=== PATIENT | male | born 1935 | race African-American/Black ===

== ENCOUNTER 2017-03-19 16:00 | Inpatient (IN) ==
[2017-03-19] MEDS ORDERED: Acetaminophen 325 MG TABLET PO ONE (16:06)
--- NOTE | 2017-03-19 16:09 | Emergency Department Note ---
Disposition Clinical Impression: Generalized weakness, Lower extremity edema RLL pneumonia Qualifiers: Pneumonia type: due to unspecified organism Qualified Code(s): J18.1 - Lobar pneumonia, unspecified organism Disposition: Admitted As Inpatient Condition: Fair Referrals: Bethany Morocho MD [Primary Care Provider] - Forms: ED Satisfaction Letter Time of Disposition: 18:49 Weakness HPI - General Chief complaint: ED Weakness Stated complaint: weakness Time Seen by Provider: 03/19/17 16:03 Source: EMS Mode of arrival: EMS Limitations: no limitations Nursing Notes Reviewed: Yes Vital Signs Reviewed: Yes - History of Present Illness HPI Narrative: Patient is an 81-year-old male who presents to [facility] ED with a chief complaint of generalized weakness. States his symptoms have been worsening over the last 2 days. Patient admits to feeling chills, no known fevers. No nausea, vomiting, headache, chest pain, abdominal pain, problems with urination or bowel movements. Admits to cough over the last 2 weeks. However daughter states the weakness did not develop until the last 2 days. Patient has not been treated on any antibiotics prior to this. Patient also noted worsening leg swelling over the last couple of days. Patient does not have any cardiac history though there was PCP concern for possible congestive heart failure. Past medical history significant for hypertension for which she was previously on lisinopril. His primary care physician just took him off it today and decided to start him on Lasix. He has not started taking this yet. Pt Subjective Complaint: generalized weakness/fatigue Onset (ago): day(s) Duration: gradually worsening Location: generalized Pain Severity: none Improves with: none Worsens with: none Associated symptoms: Reports: fever/chills - Related Data Home Medications Medication Instructions Recorded Confirmed Aspirin [Lo-Dose Aspirin EC] 81 mg PO BID 03/19/17 03/19/17 Atorvastatin [Lipitor] 40 mg PO HS 03/19/17 03/19/17 Ferrous Sulfate [Iron] 325 mg PO DAILY 03/19/17 03/19/17 Furosemide [Lasix] 20 mg PO DAILY 03/19/17 03/19/17 Multivitamin [Multi-Day Vitamins] 1 tab PO DAILY 03/19/17 03/19/17 [place]-3/Dha/Epa/Fish Oil [[place] 3 1 cap PO DAILY 03/19/17 03/19/17 500 Softgel] Omeprazole [PriLOSEC] 40 mg PO DAILY 03/19/17 03/19/17 metFORMIN [Glucophage] 500 mg PO BID 03/19/17 03/19/17 Allergies Allergy/AdvReac Type Severity Reaction Status Date / Time No Known Allergies Allergy Verified 03/19/17 16:21 All systems ED: reviewed and negative except as stated. Past Medical History - Past Medical History Attestation: Yes The following information was validated with the patient. Source: patient Medical history: Reports: hypertension - Social History Smoking Status: Former smoker (50 years ago) Physical Exam - General Limitations: no limitations General appearance: alert, in no apparent distress - Head Head exam: atraumatic, normocephalic, normal inspection - Eye Eye exam: Present: normal appearance, EOMI - ENT ENT exam: normal exam, normal oropharynx, mucous membranes moist - Neck Neck exam: Present: normal inspection, full ROM, trachea midline - Chest Chest inspection: Present: normal inspection, symmetric chest wall rise - Respiratory Respiratory exam: Present: other (Bilateral coarse breath sounds at the bases) - Cardiovascular Cardiovascular exam: Present: normal rhythm, tachycardia - Abdominal Exam Abdominal exam: Present: soft, Non-Tender. Absent: tenderness, distention, guarding, rebound, rigidity - Extremities Exam Extremities exam: Present: pedal edema (b/l 2+ pitting) - Back Exam Back exam: Present: normal inspection, full ROM. Absent: tenderness - Neurological Exam Neurological exam: Present: alert - Psychiatric Psychiatric exam: Present: normal affect, normal mood - Skin Skin exam: Present: warm, dry, intact, normal color Course Course Narrative: Patient seen and examined. Generalized weakness with 2 week history of cough, fever today, worsening bilateral lower extremity swelling. No prior cardiac history. We will get lab work, chest x-ray, EKG, urinalysis, blood cultures, lactic acid. - Reevaluation(s) Reevaluation #1: Patient's lab work shows a white count of 16. Chest x-ray shows right lower lobe pneumonia. Patient also had mild hypokalemia with a potassium of 3.1. Replaced with 40 mEq oral KCl. We will go ahead and start a dose of IV Levaquin here. We will admit for community-acquired pneumonia, generalized weakness, and new onset lower extremity edema. I spoke with hospitalist Celia Ventura who has accepted patient for admission. Time: 18:47 Vital Signs Temperature 100.7 F H 03/19/17 16:04 Pulse Rate 102 03/19/17 16:04 Respiratory Rate 16 03/19/17 16:04 Blood Pressure 160/60 03/19/17 16:04 O2 Sat by Pulse Oximetry 95 03/19/17 16:04 Temperature 100.7 F H 03/19/17 16:04 Pulse Rate 93 03/19/17 17:29 Respiratory Rate 16 03/19/17 17:29 Blood Pressure 148/75 03/19/17 17:29 O2 Sat by Pulse Oximetry 97 03/19/17 17:29 Oxygen Delivery Oxygen Delivery Room Air Weakness - MDM Narrative Medical decision making narrative: I examined this patient and my medical decision-making was reviewed with the DAM TENDER/PA/Advanced Practice Nurse/Resident Physician. I agree with the documented findings, disposition and treatment plan as described except to the extent set forth below. Patient presents today with EMS due to possible low blood pressure and feeling weak. He went to the doctor's office today complaining of some cough. They took him off his BRYNN inhibitor. He had some edema in his ankles. Also fever. He does blood pressure was low but is actually high when the medics picked him up and normal when he is at the scene. Also here. He looks well. He looks nontoxic. Recommend a workup on him. He has had a history of renal insufficiency in the past. And we will see how that is doing also with the fever will search for an ear infection. Unlikely and the large amount of fluids due to history of CHF. And then we will reassess. 1656 hrs. Patient does have a leukocytosis. His renal insufficiency is chronic and is actually better than it usually is. We are just waiting on his chest x-ray and then will reassess. See if we can find a source of his fever and leukocytosis. 1755 hrs.: Patient's chest x-ray shows an increased opacity in the right lung I think is probably a pneumonia with his fever. Waiting on official read from radiology. Chest X-Ray 03/19/17 16:03 IMPRESSION: Patchy opacity in the right lower lung zone, concerning for pneumonia. Follow-up radiographs recommended in 6-8 weeks to document resolution. D/ / Alo Dowell MD / Alo Dowell MD Interpreting Provider: Alo Dowell MD - Medical Records Medical records reviewed: Yes I reviewed the patient's medical records. - Lab Data Lab results reviewed: Yes I reviewed the patient's lab results. Result diagrams: 03/19/17 16:20 03/19/17 16:20 Lab Results 03/19/17 03/19/17 03/19/17 Range/Units 16:20 16:20 16:20 WBC 16.0 H (4.3-11.1) K/mcL RBC 3.70 L (4.19-5.50) M/mcL Hgb 10.1 L (12.9-16.9) g/dL Hct 29.8 L (37.5-50.1) % MCV 80.5 L (83.0-100.0) fL MCH 27.3 L (28.0-33.3) pg MCHC 33.9 (31.6-35.5) g/dL RDW 13.3 (11.5-14.5) % Plt Count 379 (140-400) K/mcL MPV 9.9 (9.4-12.4) fL Immature Gran % 0.6 (0-4) % Seg Neutrophils % 83.6 % Lymphocytes % 9.5 % Monocytes % 6.1 % Eosinophils % 0.1 % Basophils % 0.1 % Neutrophils # 13.3 H (1.6-8.9) K/mcL Lymphocytes # 1.5 (0.6-4.6) K/mcL Monocytes # 1.0 (0.0-1.3) K/mcL Eosinophils # 0.0 (0.0-0.6) K/mcL Basophils # 0.0 (0.0-0.2) K/mcL Immature Plt Fraction 3.2 (1.1-6.1) % Sodium 135 L (136-145) mEq/L Potassium 3.1 L (3.5-4.5) mEq/L Chloride 99 (98-109) mEq/L Carbon Dioxide 27 (19-29) mEq/L BUN 18 (8-26) mg/dL Creatinine 1.27 H (0.72-1.25) mg/dL Est GFR ( Amer) > 60 (> 60) Est GFR (Non-Af Amer) 54 L (> 60) BUN/Creatinine Ratio 14 (6-26) Glucose 159 H (70-99) mg/dL Calculated Osmolality 285 (280-300) Lactic Acid (0.5-2.2) mmol/L Calcium 9.0 (8.6-10.8) mg/dL Troponin I 0.01 (0-0.03) ng/mL B-Natriuretic Peptide (0-100) pg/mL Urine Color (Yellow) Urine Clarity (Clear) Urine pH (5.0-8.0) pH Units Ur Specific [place] (1.010-1.025) Urine Protein (Neg-Trace) mg/dL Urine Glucose (UA) (Normal) mg/dL Urine Ketones (Negative) mg/dL Urine Blood (Negative) Urine Nitrite (Negative) Urine Bilirubin (Negative) Urine Urobilinogen (Normal) mg/dL Ur Leukocyte Esterase (Negative) Urine Microscopic RBC (0-3) per hpf Urine Microscopic WBC (0-3) per hpf Ur Squamous Epith Cells (None-Few) per lpf Urine Bacteria (None-Few) per hpf Hyaline Casts (None-Few) per lpf Ur Culture Indicated? (NO) 03/19/17 03/19/17 03/19/17 Range/Units 16:20 16:20 17:17 WBC (4.3-11.1) K/mcL RBC (4.19-5.50) M/mcL Hgb (12.9-16.9) g/dL Hct (37.5-50.1) % MCV (83.0-100.0) fL MCH (28.0-33.3) pg MCHC (31.6-35.5) g/dL RDW (11.5-14.5) % Plt Count (140-400) K/mcL MPV (9.4-12.4) fL Immature Gran % (0-4) % Seg Neutrophils % % Lymphocytes % % Monocytes % % Eosinophils % % Basophils % % Neutrophils # (1.6-8.9) K/mcL Lymphocytes # (0.6-4.6) K/mcL Monocytes # (0.0-1.3) K/mcL Eosinophils # (0.0-0.6) K/mcL Basophils # (0.0-0.2) K/mcL Immature Plt Fraction (1.1-6.1) % Sodium (136-145) mEq/L Potassium (3.5-4.5) mEq/L Chloride (98-109) mEq/L Carbon Dioxide (19-29) mEq/L BUN (8-26) mg/dL Creatinine (0.72-1.25) mg/dL Est GFR ( Amer) (> 60) Est GFR (Non-Af Amer) (> 60) BUN/Creatinine Ratio (6-26) Glucose (70-99) mg/dL Calculated Osmolality (280-300) Lactic Acid 2.2 (0.5-2.2) mmol/L Calcium (8.6-10.8) mg/dL Troponin I (0-0.03) ng/mL B-Natriuretic Peptide 62 (0-100) pg/mL Urine Color Dark Yellow (Yellow) Urine Clarity Cloudy A (Clear) Urine pH 5.5 (5.0-8.0) pH Units Ur Specific [place] 1.023 (1.010-1.025) Urine Protein 100 H (Neg-Trace) mg/dL Urine Glucose (UA) Normal (Normal) mg/dL Urine Ketones Negative (Negative) mg/dL Urine Blood Negative (Negative) Urine Nitrite Negative (Negative) Urine Bilirubin Small H (Negative) Urine Urobilinogen 4.0 H (Normal) mg/dL Ur Leukocyte Esterase Negative (Negative) Urine Microscopic RBC 5-15 H (0-3) per hpf Urine Microscopic WBC 3-5 H (0-3) per hpf Ur Squamous Epith Cells Many H (None-Few) per lpf Urine Bacteria None Seen (None-Few) per hpf Hyaline Casts None Seen (None-Few) per lpf Ur Culture Indicated? NO (NO) - Radiology Data Radiology results reviewed: Yes I reviewed the patient's radiology results. Chest X-Ray 03/19/17 16:03 IMPRESSION: Patchy opacity in the right lower lung zone, concerning for pneumonia. Follow-up radiographs recommended in 6-8 weeks to document resolution. D/ / Alo Dowell MD / Alo Dowell MD Interpreting Provider: Alo Dowell MD - EKG Data EKG attestation: Yes I reviewed and interpreted this EKG. EKG results narrative: EKG done at 1608 shows sinus tachycardia with a rate of [address] elevation. Diffuse ST depression in leads 2, 3, aVF, V4 through V6. Normal axis. No prior EKG for comparison.
[2017-03-19 16:32] LABS: Basophils % 0.1 %; Eosinophils % 0.1 %; Hematocrit 29.8 % (37.5-50.1); Hemoglobin 10.1 g/dL (12.9-16.9); Immature Granulocytes % 0.6 % (0-4); Immature Platelets 3.2 % (1.1-6.1); Lymphocytes # 1.5 K/mcL (0.6-4.6); Lymphocytes % 9.5 %; Mean Corpuscular HGB Conc 33.9 g/dL (31.6-35.5); Mean Corpuscular Hemoglobin 27.3 pg (28.0-33.3); Mean Corpuscular Volume 80.5 fL (83.0-100.0); Mean Platelet Volume 9.9 fL (9.4-12.4); Monocytes % 6.1 %; Neutrophils # 13.3 K/mcL (1.6-8.9); Platelet Count 379 K/mcL (140-400); Red Cell Distribution Width 13.3 % (11.5-14.5); Segmented Neutrophils % 83.6 %
[2017-03-19 16:53] LABS: BUN/Creatinine Ratio 14 (6-26); Blood Urea Nitrogen 18 mg/dL (8-26); Carbon Dioxide 27 mEq/L (19-29); Chloride 99 mEq/L (98-109); Glucose 159 mg/dL (70-99); Osmolality,Calculated 285 (280-300); Potassium 3.1 mEq/L (3.5-4.5); Sodium 135 mEq/L (136-145); eGFR For African Americans > 60 (> 60); eGFR For Non-African Americans 54 (> 60)
[2017-03-19 17:26] LABS: Bilirubin,Urine Small (Negative); Blood,Urine Negative (Negative); Clarity,Urine Cloudy (Clear); Color,Urine Dark Yellow (Yellow); Glucose,Urine (UA) Normal (Normal); Ketones,Urine Negative (Negative); Leukocyte Esterase,Urine Negative (Negative); Nitrite,Urine Negative (Negative); PH,Urine 5.5 pH Units (5.0-8.0); Protein,Urine 100 mg/dL (Neg-Trace); Specific Gravity,Urine 1.023 (1.010-1.025)
[2017-03-19 17:29] LABS: Bacteria,Urine None Seen per hpf (None-Few); Hyaline Casts,Urine None Seen per lpf (None-Few); Squamous Epithelial Cell,Urine Many per lpf (None-Few)
[2017-03-19] MEDS ORDERED: Levofloxacin 750 MG/150 ML 750 MG/150 ML BAG IVPB ONE (18:27)
[2017-03-19] MEDS ORDERED: Naloxone 0.4 MG/ML INJ IVP PRN (19:38)
[2017-03-19] MEDS ORDERED: Ondansetron 4 MG/2 ML VIAL IVP PRN (19:40)
[2017-03-19] MEDS ORDERED: Acetaminophen 325 MG TABLET PO PRN (19:40)
[2017-03-19] MEDS ORDERED: *HR* HYDROcodone/Acet 5/325 mg TABLET PO PRN (19:40)
[2017-03-19] MEDS ORDERED: D5% in Water 1,000 ML IVC PRN (19:42)
[2017-03-19] MEDS ORDERED: *HR* Dextrose 50 % in Water (Syg) 50 ML SYRINGE IVP PRN (19:42)
[2017-03-19] MEDS ORDERED: Dextrose Gel 15 GM PO PRN ×2 (19:42)
[2017-03-19] MEDS ORDERED: Insulin LISPRO 300 UNITS/3 ML VIAL SQ SCH (21:00)
--- NOTE | 2017-03-19 21:04 | Internal Med History&Physical ---
Date of Encounter: 03/19/17 Time of Encounter: 21:00 Assessment and Plan (1) Sepsis Current visit: Yes Status: Acute 1 patient presented with history of fevers chills or productive cough with yellow sputum chest x-ray revealed RLLo patency suggestive of pneumonia, he was tachycardic with a white count 16. Blood cultures have been drawn and we will obtain sputum cultures, blood pressure stable, 2 IV fluids 3 monitor intake and output 4 Levaquin/Unasyn 5 cardiac monitoring Qualifiers: Sepsis type: sepsis due to unspecified organism Qualified Code(s): A41.9 - Sepsis, unspecified organism (2) RLL pneumonia Current visit: Yes Status: Acute 1 CAP vs possible aspiration- patient has been experiencing productive cough with thick yellow sputum fevers he also has been experiencing globulus sensation and dysphagia, concern for possible aspiration. Blood cultures have been obtained we will obtain sputum cultures 2 we will continue with Levaquin and add Unasyn 3. Bronchodilators as needed 4 oxygen as needed Qualifiers: Pneumonia type: due to unspecified organism Qualified Code(s): J18.1 - Lobar pneumonia, unspecified organism (3) Globus sensation Current visit: Yes Status: Acute 1 patient has been experiencing globules sensation when eating. He has also experienced some weight loss with anemia- concern for possible neoplasm we will make patient nothing by mouth after midnight-only give for liquids for now 2 consult GI EGD (4) Diabetes mellitus Current visit: Yes Status: Chronic Accu-Cheks q 6hrs while NPO, we will hold metformin for now Qualifiers: Diabetes mellitus type: type 2 Diabetes mellitus complication detail: with chronic kidney disease Diabetes mellitus snf insulin use: without termite control technician use Chronic kidney disease stage: stage 3 (moderate) Qualified Code(s) : E11.22 - Type 2 diabetes mellitus with diabetic chronic kidney disease; N18.3 - Chronic kidney disease, stage 3 (moderate) (5) CKD (chronic kidney disease) stage 3, GFR 30-59 ml/min Current visit: Yes Status: Acute 1 creatinine is 1.27 he was 1.5 last month. We will continue to monitor creatinine 2 avoid nephrotoxins 3 renally dose antibiotics 4 avoid NSAIDs 5 monitor intake and output daily weights (6) DVT prophylaxis Current visit: Yes Status: Acute 1TED hose (7) Anemia Current visit: Yes Status: Acute Hgb is 10.8, normocytic, will obtain iron studies folate and B12 Qualifiers: Anemia type: unspecified type Qualified Code(s): D64.9 - Anemia, unspecified Internal Medicine - H&P: HPI Chief complaint: cough Admitted From: Emergency Dept Plans for Post Hospital Care: Home History of present illness: Mr. Tyler is a 81 year old male past medical history of diabetes hypertension. Cranial patient has been experiencing weakness and cough subjective fevers and chills for approximately the past 2 weeks. He states the cough is worse at night. He also states he has been experiencing some difficulty swallowing he feels as if something is stuck in his throat when he is eating. His daughter who is at bedside states that she has noted that he does cough and clears his throat when he eats. He has had some weight loss. He has been producing thick yellow sputum he denies any nausea vomiting shortness of breath abdominal pain chest pain sick contacts or recent travel. He has lower extremity edema bilat right leg more than left . He went to his primary care physician today with these complaints. He had a fever upon presentation at primary care office he was advised to go to the ER for evaluation. In the ER lab work was obtained which did show leukocytosis 16,000 as well as hypokalemia at 3.1 his creatinine is 1.27 lactate was 2.2 chest x-ray was obtained which did show an opacity in his right lower lobe. EKG shows sinus tachycardia with some nonspecfic ST depression He did meet sepsis criteria blood cultures were obtained he was started on Levaquin and has been admitted for further workup and evaluation. Presently the patient does not appear to be in any respiratory distress he denies any chest pain heart sounds are regular S1-S2 with no rubs clicks gallops murmurs noted. Lungs sounds with crackles in right lower base otherwise clear. Abdomen soft nontender he does have +1 edema to right lower extremity. Presently he is hemodynamically stable. I reviewed the case with Dr Olvera who agrees with plan Past Med Surg Social Fam HX - Past Medical History Medical history: hypertension - Social History Smoking Status: Former smoker (50 years ago) Alcohol use: rarely Drug use: none - Additional Family History Additional family history: unknown Internal Medicine - H&P: Meds Aspirin [Lo-Dose Aspirin EC] 81 mg PO BID 03/19/17 [History] Atorvastatin [Lipitor] 40 mg PO HS 03/19/17 [History] Ferrous Sulfate [Iron] 325 mg PO DAILY 03/19/17 [History] Furosemide [Lasix] 20 mg PO DAILY 03/19/17 [History] Multivitamin [Multi-Day Vitamins] 1 tab PO DAILY 03/19/17 [History] [place]-3/Dha/Epa/Fish Oil [[place] 3 500 Softgel] 1 cap PO DAILY 03/19/17 [History] Omeprazole [PriLOSEC] 40 mg PO DAILY 03/19/17 [History] metFORMIN [Glucophage] 500 mg PO BID 03/19/17 [History] Allergies No Known Allergies Allergy (Verified 03/19/17 16:21) All Systems PM: A 10-system review of systems was performed and is negative for pertinent findings except as documented above in the HPI. - Constitutional Constitutional: fatigue, weakness, weight loss - Cardiovascular Cardiovascular ROS IM: edema, no chest pain, no diaphoresis, no dyspnea, no lightheadedness, no palpitations, no syncope - Respiratory Respiratory: cough, excessive phlegm production, change in phlegm color - Gastrointestinal Gastrointestinal: dysphagia, no abdominal pain, no diarrhea, no hematemesis, no hematochezia, no melena, no nausea, no vomiting - Musculoskeletal Musculoskeletal ROS IM: no numbness, no tingling - Integumentary Integumentary IM: no rash, no unusual bruising - Neurological Neurological ROS: no confusion, no convulsions, no focal weakness, no numbness, no tingling, no tremor(s) - Hematologic/Lymphatic Hematologic/Lymphatic: no easy bruising - Constitutional Vitals: Temp Pulse Resp BP Pulse Ox 97.6 F 83 15 143/71 95 03/19/17 20:13 03/19/17 20:13 03/19/17 20:13 03/19/17 20:13 03/19/17 20:13 General appearance: Present: A&O X 3, pleasant, underweight - Head Head exam: Present: atraumatic, normocephalic - Eye Eye exam: Present: PERRL, conjuntiva pink, sclera anicteric Pupils: Present: PERRL - Neck Neck exam general surgery: Present: supple, trachea midline. Absent: lymphadenopathy - Respiratory Respiratory exam: Present: CTAB, rales. Absent: accessory muscle use, rhonchi, wheezes - Cardiovascular Cardiovascular exam: Present: RRR, +S1, +S2, tachycardia. Absent: diastolic murmur, gallop, rubs, systolic murmur - GI/Abdominal GI/Abdominal exam: Present: normal bowel sounds, soft, no peritoneal signs. Absent: distended, tenderness - Extremities Exam Extremities exam: Present: pedal edema, warm, radial pulses palpable and symetrical. Absent: calf tenderness, cyanotic - Neurological Exam Neurological exam: Present: CN II-XII intact, oriented X3, no focal deficits. Absent: pronater drift, facial droop, speech deficit - Skin Skin exam: Present: dry, intact Internal Med - H&P Results - Labs CBC & Chem 7: 03/19/17 16:20 03/19/17 16:20 - EKG Data Rate: tachycardia - EKG Data Prior EKG available for review: yes - Diagnostic Studies Other Images Additional comments: Chest X-Ray 03/19/17 16:03 IMPRESSION: Patchy opacity in the right lower lung zone, concerning for pneumonia. Follow-up radiographs recommended in 6-8 weeks to document resolution. D/ / Alo Dowell MD / Alo Dowell MD Interpreting Provider: Alo Dowell MD
[2017-03-19] MEDS ORDERED: Albuterol 2.5 MG/3 ML NEBULIZER IH PRN (21:33)
[2017-03-19] MEDS: Ampicillin/Sulbactam 3,000 MG in 0.9 % Sodium Chloride Mini Bag 100 ML IVPB SCH (22:08)
[2017-03-19] MEDS: 0.9 % Sodium Chloride 1,000 ML IVC SCH (22:09)
[2017-03-19] MEDS: Lactobacillus 1 EACH CAP.SPRINK PO SCH (22:09)
[2017-03-19] MEDS: Aspirin Enteric Coated 81 MG Tablet PO SCH (22:09)
[2017-03-20] MEDS ORDERED: Ampicillin/Sulbactam 3,000 MG in 0.9 % Sodium Chloride Mini Bag 100 ML IVPB SCH
[2017-03-20] MEDS ORDERED: Ampicillin/Sulbactam 1,500 MG in 0.9 % Sodium Chloride Mini Bag 100 ML IVPB SCH
[2017-03-20] MEDS: Insulin LISPRO 300 UNITS/3 ML VIAL SQ SCH ×4 (00:57→17:15)
[2017-03-20] MEDS: Ampicillin/Sulbactam 3,000 MG in 0.9 % Sodium Chloride Mini Bag 100 ML IVPB SCH ×4 (03:45→20:57)
[2017-03-20 05:53] LABS: Basophils % 0.2 %; Eosinophils % 0.1 %; Hematocrit 30.9 % (37.5-50.1); Hemoglobin 10.1 g/dL (12.9-16.9); Immature Granulocytes % 0.8 % (0-4); Lymphocytes # 1.3 K/mcL (0.6-4.6); Mean Corpuscular HGB Conc 32.7 g/dL (31.6-35.5); Mean Corpuscular Hemoglobin 26.4 pg (28.0-33.3); Mean Corpuscular Volume 80.7 fL (83.0-100.0); Mean Platelet Volume 9.9 fL (9.4-12.4); Monocytes % 5.4 %; Neutrophils # 16.7 K/mcL (1.6-8.9); Platelet Count 438 K/mcL (140-400); Red Blood Count 3.83 M/mcL (4.19-5.50); Red Cell Distribution Width 13.2 % (11.5-14.5); Segmented Neutrophils % 86.5 %
[2017-03-20 06:04] LABS: Alanine Aminotransferase 13 Units/L (0-55); Albumin 2.2 g/dL (3.5-5.0); Albumin/Globulin Ratio 0.5 (1.1-2.2); Alkaline Phosphatase 86 Units/L (38-126); Aspartate Amino Transferase 21 Units/L (5-34); BUN/Creatinine Ratio 13 (6-26); Bilirubin,Direct 0.6 mg/dL (0.0-0.5); Bilirubin,Indirect 0.5 mg/dL (0.0-1.2); Bilirubin,Total 1.1 mg/dL (0.2-1.2); Blood Urea Nitrogen 17 mg/dL (8-26); Calcium 9.5 mg/dL (8.6-10.8); Carbon Dioxide 26 mEq/L (19-29); Chloride 102 mEq/L (98-109); Globulin 4.2 g/dL (2.4-3.5); Glucose 126 mg/dL (70-99); Osmolality,Calculated 287 (280-300); Potassium 3.5 mEq/L (3.5-4.5); Sodium 137 mEq/L (136-145); Total Protein 6.4 g/dL (6.0-8.3); eGFR For African Americans > 60 (> 60); eGFR For Non-African Americans 53 (> 60)
[2017-03-20] MEDS: *HR* Enoxaparin 40 MG/0.4 ML SYRINGE SQ SCH (06:36)
[2017-03-20 06:43] LABS: % Iron Saturation 9 % (20-55); Iron 13 mcg/dL (65-175); Transferrin 106 mg/dL (174-364)
[2017-03-20] MEDS ORDERED: Insulin LISPRO 300 UNITS/3 ML VIAL SQ SCH ×2 (07:30→21:00)
--- NOTE | 2017-03-20 08:12 | Gastroenterology Consult Note ---
<Aury Link - Last Filed: 03/20/17 10:27> Date of Encounter: 03/20/17 Time of Encounter: 10:05 - Assessment and plan (1) Dysphagia Current Visit: Yes Status: Acute Assessment and plan: EGD today. Add PPI if not already on one during admit. R/O esophagitis, gastritis, duodenitis, PUD, h. pylori, stricture, tumor. Qualifiers: Dysphagia type: unspecified Qualified Code(s): R13.10 - Dysphagia, unspecified - Time Spent With Patient Total time spent is greater than 50% in coordination of care (as documented) at patient's floor/unit and/or counseling patient: less than 15 minutes GI History of Present Illness - Data of Consult Patient: new to practice Consult date: 03/20/17 Requesting Physician: Wolfgang Tyler, DO - Consult Narrative Reason for consult: Dysphagia History of present illness: Mr. Tyler is a 81 year old male with a PMH significant for DM, HTN. He presented to ED with complaint of weakness and cough, subjective fevers and chills for approximately the past 2 weeks. He stated the cough was worse at night. He also complains of difficulty swallowing, globus sensation. He has had some weight loss of unspecified amount. He reported thick yellow sputum but denied N/V, SOB, abdominal pain, chest pain, sick contacts or recent travel. He has lower extremity edema bilat right leg more than left . He went to his primary care physician 03/19/17 with these complaints. He had a fever upon presentation at primary care office and he was advised to go to the ER for evaluation. In the ER lab work was obtained which did show leukocytosis 16,000 as well as hypokalemia at 3.1 his creatinine is 1.27 lactate was 2.2 chest x-ray was obtained which did show an opacity in his right lower lobe. Patient was resting with family at bedside at time of my evaluation. He admits acid reflux at home that worsened at night, lots of coughing and burning sensation. He states difficulty getting solids to 'go all the way down'. Denies regurgitation or vomiting. BM daily 1-2 times, no blood or black stools. No prior scopes. Colonoscopy: None noted EGD: None noted Past Med Surg Social Fam HX - Past Medical History Medical history: hypertension - Past Surgical History Surgical History: no surgical history - Social History Smoking Status: Former smoker (50 years ago) Alcohol use: rarely Drug use: none - Gastrointestinal Anticoagulation Use: None Number of BM Per Day: 1-2 Gastrointestinal: Present: dyspepsia, heartburn - Constitutional Constitutional: fatigue - EENT Eyes: as per HPI Ears: Present: as per HPI Nose, mouth and throat: Present: dysphagia - Cardiovascular Cardiovascular ROS: Present: as per HPI - Respiratory Respiratory IM: Present: cough - Neurological ROS Neurological GI: Present: weakness - Hematologic/Lymphatic Hematologic/Lymphatic pediatric: Present: as per HPI - Musculoskeletal Musculoskeletal ROS GI: Present: as per HPI - Integumentary Integumentary GI: Present: as per HPI - Psychiatric ROS Psychiatric GI: Present: as per HPI - Endocrine Endocrine IM: Present: as per HPI - Constitutional Vitals: Temp Pulse Resp BP Pulse Ox 98.5 F 92 16 135/67 97 03/20/17 07:17 03/20/17 07:17 03/20/17 07:17 03/20/17 07:17 03/20/17 07:17 General appearance: Present: cooperative, A&O X 3, no acute distress, answers questions appropriately - Head Head exam: Present: atraumatic, normocephalic - Eye Eye exam: Present: normal appearance, sclera anicteric - ENT ENT exam: Present: mucous membranes moist - Neck Neck exam general surgery: Present: normal inspection, trachea midline - Respiratory Respiratory exam: Present: CTAB - Cardiovascular Cardiovascular exam: Present: RRR, +S1, +S2 - GI/Abdominal GI/Abdominal exam: Present: normal bowel sounds, soft, no peritoneal signs - Rectal Rectal exam: Present: deferred - Extremities Exam Extremities exam: Present: warm - Neurological Exam Neurological exam: Present: no focal deficits - Psychiatric Psychiatric exam: Present: normal affect, normal mood - Skin Skin exam: Present: dry, intact, normal color, warm Results - Labs CBC & Chem 7: 03/20/17 05:07 03/20/17 05:07 Labs: Last Result Calcium 9.5 mg/dL (8.6-10.8) 03/20/17 05:07 Iron 13 mcg/dL (65-175) L 03/20/17 05:07 % Saturation 9 % (20-55) L 03/20/17 05:07 Transferrin 106 mg/dL (174-364) L 03/20/17 05:07 Troponin I 0.01 ng/mL (0-0.03) 03/19/17 16:20 Vitamin B12 330 pg/mL (213-816) 03/20/17 05:07 Folate 7.0 ng/mL (7.0-31.4) 03/20/17 05:07 Entire Visit Hgb 10.1 g/dL (12.9-16.9) L 03/20/17 05:07 Hct 30.9 % (37.5-50.1) L 03/20/17 05:07 Total Bilirubin 1.1 mg/dL (0.2-1.2) 03/20/17 05:07 AST 21 Units/L (5-34) 03/20/17 05:07 ALT 13 Units/L (0-55) 03/20/17 05:07 Folate 7.0 ng/mL (7.0-31.4) 03/20/17 05:07 Consult Discharge Plan - Plan Referrals: Bethany Morocho MD [Primary Care Provider] - <Julia Gallegos - Last Filed: 03/20/17 10:54> Date of Encounter: 03/20/17 Time of Encounter: 10:45 - Time Spent With Patient Total time spent is greater than 50% in coordination of care (as documented) at patient's floor/unit and/or counseling patient: GI History of Present Illness - Data of Consult Requesting Physician: Wolfgang Tyler DO - Consult Narrative History of present illness: Mr. Tyler is a 81 year old male - Constitutional Vitals: Temp Pulse Resp BP Pulse Ox 98.5 F 92 16 135/67 97 03/20/17 10:23 03/20/17 10:23 03/20/17 10:23 03/20/17 10:23 03/20/17 10:23 Results - Labs CBC & Chem 7: 03/20/17 05:07 03/20/17 05:07 Labs: Last Result Calcium 9.5 mg/dL (8.6-10.8) 03/20/17 05:07 Iron 13 mcg/dL (65-175) L 03/20/17 05:07 % Saturation 9 % (20-55) L 03/20/17 05:07 Transferrin 106 mg/dL (174-364) L 03/20/17 05:07 Troponin I 0.01 ng/mL (0-0.03) 03/19/17 16:20 Vitamin B12 330 pg/mL (213-816) 03/20/17 05:07 Folate 7.0 ng/mL (7.0-31.4) 03/20/17 05:07 Entire Visit Hgb 10.1 g/dL (12.9-16.9) L 03/20/17 05:07 Hct 30.9 % (37.5-50.1) L 03/20/17 05:07 Total Bilirubin 1.1 mg/dL (0.2-1.2) 03/20/17 05:07 AST 21 Units/L (5-34) 03/20/17 05:07 ALT 13 Units/L (0-55) 03/20/17 05:07 Folate 7.0 ng/mL (7.0-31.4) 03/20/17 05:07 - Attending Attestation I examined this patient and my medical decision-making was reviewed with the PROCESS IMPROVEMENT ENGINEER/PA/Advanced Practice Nurse/Resident Physician. I agree with the documented findings, disposition and treatment plan as described except to the extent set forth below.
[2017-03-20] MEDS: 0.9 % Sodium Chloride 1,000 ML IVC SCH (08:44)
[2017-03-20] MEDS ORDERED: DHA PO SCH (09:00)
[2017-03-20] MEDS ORDERED: EPA PO SCH (09:00)
[2017-03-20] MEDS ORDERED: Furosemide 20 MG TABLET PO SCH (09:00)
[2017-03-20] MEDS ORDERED: FISH OIL PO SCH (09:00)
[2017-03-20] MEDS ORDERED: OMEGA PO SCH (09:00)
[2017-03-20] MEDS ORDERED: 0.9 % Sodium Chloride 500 ML IVC SCH (10:30)
--- NOTE | 2017-03-20 10:33 | Anesthesia Evaluation PreOp ---
Date of Encounter: 03/20/17 Time of Encounter: 10:31 - Past History Planned Operation: egd/dysphagia admit for cough/sputum prodn Cardiac History: HTN, Hyperlipidemia Pulmonary History: Former smoker, Other (cxr, rll opacity) PERSONAL INJURY LEGAL ASSISTANT History: Denies Any Significant HX Other Medical History: Renal (ckd), Diabetes Type II (119 at 0630), GERD Anesthesia History: No Prior Anesthetic Complications, Past Anesthesia (denies fh anesthetic complications) Alcohol Use: rarely Drug use: none Medications and Allergies Aspirin [Lo-Dose Aspirin EC] 81 mg PO BID 03/19/17 [History] Atorvastatin [Lipitor] 40 mg PO HS 03/19/17 [History] Ferrous Sulfate [Iron] 325 mg PO DAILY 03/19/17 [History] Furosemide [Lasix] 20 mg PO DAILY 03/19/17 [History] Multivitamin [Multi-Day Vitamins] 1 tab PO DAILY 03/19/17 [History] [place]-3/Dha/Epa/Fish Oil [[place] 3 500 Softgel] 1 cap PO DAILY 03/19/17 [History] Omeprazole [PriLOSEC] 40 mg PO DAILY 03/19/17 [History] metFORMIN [Glucophage] 500 mg PO BID 03/19/17 [History] Allergies No Known Allergies Allergy (Verified 03/19/17 16:21) - Meds/Allergy Pre-op Review Medications Reviewed: Yes Allergies Reviewed: Yes Beta Blockers on Current Med List: No Anesthesia Results - Labs 03/20/17 05:07 03/20/17 05:07 - Imaging EKG: report reviewed (in ed, ST) Anesthesia Exam Vital Signs/O2 Sat/Glucose, Most Current Temp Pulse Resp BP Pulse Ox 03/20/17 10:23 98.5 F 92 16 135/67 97 03/20/17 07:17 98.5 F 92 16 135/67 97 Height: 1.73 Weight: 72 NPO (# of Hours): >8 - HEENT Pupil (Motor): Pupils equal, EOMI Mallampati: II Teeth: Edentulous Oral Opening: Greater than 3 - PERSONAL INJURY LEGAL ASSISTANT LOC: Oriented PERSONAL INJURY LEGAL ASSISTANT Motor: Normal RUE, Normal LUE, Normal RLE, Normal LLE, Normal Face PERSONAL INJURY LEGAL ASSISTANT Sensory: Normal: RUE, LUE, RLE, LLE, Face - Cardiac Rhythm: Regular Murmur: None - Pulmonary Breath Sounds: bilateral Clear Respiratory Effort: Symmetrical Anesthesia Assess/Plan ASA Score: 3 Modified [place] Scale for Level of Consciousness: Cooperative, oriented, and tranquil Anesthetic Plan: MAC Monitoring Plan: Standard Monitors Recovery Plan: Other
--- NOTE | 2017-03-20 13:06 | Electrocardiograph Report ---
[place] [id number] Test Date: 2017-03-19 Pat Name: Teri Tyler Department: 102 Room: 2A Gender: M [employer]: Amor : 1935 Requested By: Saulo King Order Number: [id number] Reading MD: Mario Alberto Marley MD Measurements Intervals Rosalie Rate: 105 P: 71 AK: 147 QRS: 68 QRSD: 86 T: 51 QT: 256 QTc: 317 Interpretive Statements SINUS TACHYCARDIA Electronically Signed On 03-20-2017 13:04:26 EDT by Mario Alberto Marley MD
[2017-03-20] MEDS: Multivit/Ca/Min/Fe/FA 1 TAB TABLET PO SCH (14:20)
[2017-03-20] MEDS: Aspirin Enteric Coated 81 MG Tablet PO SCH ×2 (14:20→20:57)
[2017-03-20] MEDS: Lactobacillus 1 EACH CAP.SPRINK PO SCH ×2 (14:20→20:57)
[2017-03-20] MEDS ORDERED: Dextrose Gel 15 GM PO PRN ×2 (16:15)
[2017-03-20] MEDS ORDERED: D5% in Water 1,000 ML IVC PRN ×2 (16:15→19:12)
[2017-03-20] MEDS ORDERED: *HR* Dextrose 50 % in Water (Syg) 50 ML SYRINGE IVP PRN (16:15)
--- NOTE | 2017-03-20 18:57 | Internal Med Progress Note ---
Date of Encounter: 03/20/17 Time of Encounter: 09:30 - Assessment and plan (1) RLL pneumonia Current Visit: Yes Status: Suspected Assessment and plan: Presumed aspiration pneumonia due to dysphagia. Currently on IV abx. Continue as is for now. Qualifiers: Pneumonia type: aspiration pneumonia Aspiration pneumonia type: due to gastric secretions Qualified Code(s): J69.0 - Pneumonitis due to inhalation of food and vomit (2) Diabetes mellitus Current Visit: Yes Status: Chronic Assessment and plan: Continue monitor blood sugars and cover. 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 (4) Dysphagia Current Visit: Yes Status: Acute Assessment and plan: EGD today. Qualifiers: Dysphagia type: unspecified Qualified Code(s): R13.10 - Dysphagia, unspecified (5) Anemia Current Visit: Yes Status: Acute Assessment and plan: Monitor and recheck. Qualifiers: Anemia type: unspecified type Qualified Code(s): D64.9 - Anemia, unspecified - Subjective Interval history: Mr. Tyler is currently admitted for acute pneumonia presumed aspiration and dysphagia. He is moderate to high risk due to potential for worsening respiratory and infectious status. Mr. Tyler is hungry. He is awaiting EGD. No chest pain. Breathing better. No fever or chills. No diarrhea. - Constitutional Vitals: Temp Pulse Resp BP Pulse Ox 98.6 F 86 16 139/67 96 03/20/17 18:45 03/20/17 18:45 03/20/17 18:45 03/20/17 18:45 03/20/17 18:45 General appearance: Present: A&O X 3, pleasant, underweight - Head Head exam: Present: normocephalic - Eye Eye exam: Present: EOMI, conjuntiva pink - ENT ENT exam: Present: mucous membranes moist - Respiratory Respiratory exam: Present: decreased breath sounds, CTAB. Absent: rhonchi, wheezes Additional comments: Diminished R base - Cardiovascular Cardiovascular exam: Present: RRR. Absent: tachycardia - GI/Abdominal GI/Abdominal exam: Present: soft. Absent: tenderness - Extremities Exam Extremities exam: Present: warm. Absent: tenderness - Neurological Exam Neurological exam: Present: alert, oriented X3, no focal deficits - Skin Skin exam: Present: warm. Absent: rash Internal Medicine: Result - Labs CBC & Chem 7: 03/20/17 05:07 03/20/17 05:07 Labs: Short CBC 03/20/17 Range/Units 05:07 WBC 19.3 H (4.3-11.1) K/mcL Hgb 10.1 L (12.9-16.9) g/dL Hct 30.9 L (37.5-50.1) % Plt Count 438 H (140-400) K/mcL Neutrophils # 16.7 H (1.6-8.9) K/mcL BMP 03/20/17 05:07 Sodium 137 Potassium 3.5 Chloride 102 Carbon Dioxide 26 BUN 17 Creatinine 1.31 H Glucose 126 H Calcium 9.5 Liver Function 03/20/17 Range/Units 05:07 Total Bilirubin 1.1 (0.2-1.2) mg/dL Direct Bilirubin 0.6 H (0.0-0.5) mg/dL AST 21 (5-34) Units/L ALT 13 (0-55) Units/L Alkaline Phosphatase 86 (38-126) Units/L Albumin 2.2 L (3.5-5.0) g/dL - Impressions Impressions Abdomen/Pelvis CT 03/20/17 16:30 IMPRESSION: Markedly enlarged prostate gland with diffuse wall thickening the urinary bladder suggesting chronic outlet obstruction. Correlation with PSA levels is recommended. Partially visualized irregular wall thickening of the intrathoracic esophagus compatible with known mass. No evidence of intra-abdominal metastatic disease. D/ / Chika Flores Cha, MD / Chika Flores Cha, MD Interpreting Provider: Chika Flores Cha, MD Chest CT 03/20/17 16:30 IMPRESSION: 1. Circumferential distal esophageal mass with extension and possible communication into the right lower lobe. 2. Multiple enlarged posterior mediastinal lymph nodes and right hilar lymph nodes. The largest node drapes around the descending thoracic aorta. 3. Extensive consolidation in the right lower lobe concerning for pneumonia and likely related to the distal esophageal mass and possible communication into the lung parenchyma. No leak of enteric contrast. 4. Small right pleural effusion. Trace left pleural effusion. No pneumothorax. D/ / 03/20/2017 17:46:03 Jim Friedman MD / earnold Interpreting Provider: Jim Friedman MD - VTE Documentation of Mechanical Device: Graduated compression elastic hosiery Consult Discharge Plan - Plan Referrals: Bethany Morocho MD [Primary Care Provider] - (web request sent on )
[2017-03-21] MEDS: Ampicillin/Sulbactam 3,000 MG in 0.9 % Sodium Chloride Mini Bag 100 ML IVPB SCH (02:58)
[2017-03-21] MEDS: *HR* Enoxaparin 40 MG/0.4 ML SYRINGE SQ SCH (07:05)
[2017-03-21 08:26] VITALS: BP 124/63
[2017-03-21] MEDS ORDERED: Amoxicillin/Clavulanate 400 MG/5 ML UDC PO SCH (08:30)
[2017-03-21] MEDS ORDERED: Levofloxacin 750 MG/150 ML 750 MG/150 ML BAG IVPB SCH (09:00)
[2017-03-21] MEDS ORDERED: levoFLOXacin 750 MG TABLET PO SCH (09:00)
[2017-03-21] MEDS: Insulin LISPRO 300 UNITS/3 ML VIAL SQ SCH (09:22)
[2017-03-21] MEDS: Multivit/Ca/Min/Fe/FA 1 TAB TABLET PO SCH (09:23)
[2017-03-21] MEDS: Lactobacillus 1 EACH CAP.SPRINK PO SCH (09:23)
[2017-03-21] MEDS: Aspirin Enteric Coated 81 MG Tablet PO SCH (09:23)
--- NOTE | 2017-03-21 09:38 | Discharge Summary ---
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 terminal operator insulin use: without keno terminal operator use Chronic kidney disease stage: stage 3 (moderate) Qualified Code(s) : E11.22 - Type 2 diabetes mellitus with diabetic chronic kidney disease; N18.3 - Chronic kidney disease, stage 3 (moderate) (5) CKD (chronic kidney disease) stage 3, GFR 30-59 ml/min Priority: Secondary Status: Chronic (6) Dysphagia Priority: Secondary Status: Acute Qualifiers: Dysphagia type: unspecified Qualified Code(s): R13.10 - Dysphagia, unspecified (7) Anemia Priority: Secondary Status: Chronic Qualifiers: Anemia type: unspecified type Qualified Code(s): D64.9 - Anemia, unspecified (8) Lower extremity edema Priority: Secondary Status: Acute - Discharge Medications Prescriptions: Amoxicillin/Clavulanate [AUGMENTIN Susp] 800 mg PO Q12HR #28 udc levoFLOXacin [Levaquin] 750 mg PO DAILY #5 tablet Home Medications: Aspirin [Lo-Dose Aspirin EC] 81 mg PO BID 03/19/17 [History] Atorvastatin [Lipitor] 40 mg PO HS 03/19/17 [History] Ferrous Sulfate [Iron] 325 mg PO DAILY 03/19/17 [History] Furosemide [Lasix] 20 mg PO DAILY 03/19/17 [History] Multivitamin [Multi-Day Vitamins] 1 tab PO DAILY 03/19/17 [History] [place]-3/Dha/Epa/Fish Oil [[place] 3 500 Softgel] 1 cap PO DAILY 03/19/17 [History] Omeprazole [PriLOSEC] 40 mg PO DAILY 03/19/17 [History] Amoxicillin/Clavulanate [AUGMENTIN Susp] 800 mg PO Q12HR #28 udc 03/21/17 [Rx] levoFLOXacin [Levaquin] 750 mg PO DAILY #5 tablet 03/21/17 [Rx] Allergies/Adverse Reactions: Allergies No Known Allergies Allergy (Verified 03/19/17 16:21) Procedures/tests Complete & Pending: Procedures Performed prior 72 hours Category Date Time Status CT abd pelvis wo iv oral only [CT] Routine Cat Scan 03/20/17 16:[address] chest w/o contrast [CT chest wo con] [CT] Routine Cat Scan 03/20/17 16:30 Draft EV echocardiogram Routine Y 03/20/17 17:55 Completed Date of admission: 03/19/17 19:08 Primary care physician: Bethany Galicia Consults: 03/19/17 21:15 Consult to Gastroenterology [CONS] Routine Consulting Provider: Gastroenterology Jazmyne Reason for Consult: dysphagia - globus sensation Time Notified: 21:17 Call Completed: No 03/19/17 21:53 Consult to Nutrition [CONS] Stat Comment: Consulting Provider: NUTRITION Reason for Dietary Consult: Other Other:: appetite loss 03/20/17 12:24 Consult to Oncology Hematology [CONS] Routine Consulting Provider: Bernadette García Reason for Consult: Esophageal tumor Time Notified: 12:25 Call Completed: Yes Discharging clinician: Wolfgang Tyler Anticipated date of discharge: 03/21/17 - Patient Status Disposition: Home, Self-Care Condition: Good Functional capacity at discharge: independent ambulation Overall status at discharge: patient is progressing back to baseline - Discharge Instructions Follow Up With: Bethany Morocho MD [Primary Care Provider] - (web request sent on ) - Diet and Activity Activity: resume usual activities as tolerated Diet: advance to your usual diet Hospital course: Mr. Tyler is a 81 year old male with hx of diabetes and HTN presented to ED with cough and fever/chills. He was also complaining of dysphagia to solid foods. He was evaluated and felt to have RLL pneumonia. He was subsequently admitted for further treatment. Mr. Tyler was admitted to [facility]. He was started on IV abx for presumptive pneumonia. He was made NPO and seen by GI on the morning of 03/20. He underwent EGD and esophageal mass was found. CT showed local extension but nothing in the abdomen. He tolerated IV fluids and liquid/soft diet. On the morning of 03/21 he was seen by oncology and arrangements were planned for outpatient follow up. At that time he was afebrile with stable vitals. He was felt ready for discharge home. He will complete a course of PO abx. He continues to have lower extremity edema and echo results are pending. He is to follow with PCP Thursday and hold Metformin until follow up then. - Time Spent with Patient Total time spent providing and/or coordinating discharge services: 39min - Constitutional Vitals: Temp Pulse Resp BP Pulse Ox 98.6 F 85 16 124/63 94 03/21/17 08:25 03/21/17 08:25 03/21/17 08:25 03/21/17 08:25 03/21/17 08:25 General appearance: Present: A&O X 3, pleasant, underweight - Head Head exam: Present: normocephalic - Eye Eye exam: Present: EOMI, conjuntiva pink - ENT ENT exam: Present: mucous membranes moist - Respiratory Respiratory exam: Present: CTAB. Absent: rales, rhonchi, wheezes Additional comments: Diminished on R - Cardiovascular Cardiovascular exam: Present: RRR. Absent: systolic murmur, tachycardia - GI/Abdominal GI/Abdominal exam: Present: soft. Absent: tenderness - Extremities Exam Extremities exam: Present: pedal edema, warm. Absent: tenderness - Neurological Exam Neurological exam: Present: alert, oriented X3, no focal deficits - Psychiatric Psychiatric exam: Present: normal affect, normal mood - Skin Skin exam: Present: dry, warm. Absent: rash - VTE Documentation of Mechanical Device: Graduated compression elastic hosiery
--- NOTE | 2017-03-21 09:48 | Oncology Inp Consult Note ---
Date of Encounter: 03/21/17 Time of Encounter: 09:45 - Data of Consult Patient: new to practice Consult date: 03/21/17 Requesting Physician: Wolfgang Tyler DO Primary Care Provider: Bethany Sheehan-Mp - Consult Narrative Reason for consult: Suspected esophageal cancer. History of present illness: Mr. Tyler is a 81 year old gentleman seen in consultation regarding suspected esophageal cancer. Patient initially presented 03/19/17 with progressive dysphagia and globus sensation associated with cough, weakness 2 weeks. Workup showed leukocytosis and mild microcytic anemia with likely reactive thrombocytosis. EGD 03/20/[address] Gallegos showed a fungating, ulcerating mass in the middle to lower part of the esophagus. Partially obstructing. 25-36 cm from the gums. GE junction was at 40 cm. Stomach and duodenum was unremarkable. Biopsies obtained and pathology is pending. CT chest abdomen and pelvis 03/20/17 showed circumferential thickening and dilation of the distal thoracic esophagus at the level of the left atrium measuring 5.9 cm with central cavitation. Extending into the right lateral wall of the mass into the right lower lobe. Multiple enlarged posterior mediastinal nodes. Largest was a 4 cm node stricture on the descending thoracic aorta. Additional subcarinal lymph nodes present. No contrast leak into the mediastinum. No other evidence of distant metastatic disease. Abdomen CT showed markedly enlarged prostate with evidence of obstructive uropathy. He does have a mild kidney dysfunction which appears to be improving compared to September 2016. Oncology is consulted re: suspected esophageal cancer with local regional involvement. Patient seen and examined at bedside with family members present including daughter Pia who provided additional information. Chart reviewed for details of ongoing care by Hospital team which is much appreciated. I also had the opportunity to discuss his case with Dr. Tyler regarding oncologic impression/recommendations. He is doing quite well at time of exam this morning. He is not having any acute symptoms. He is not having any pain. He still has some swallowing difficulty and GI has recommended liquid diet while workup is ongoing. He reports fairly good general health and lives independently in a home issues with his family members including 2 daughters and 1 son. He reports fairly well-preserved physical performance status and activity level. 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 Rest of past medical, surgical, family, social history detailed below and verified with patient today. Review of systems: 12 point review of systems performed with patient and positive findings noted in history of present illness. All other systems are negative: Physical exam: Vital Signs Temp 98.6 F 03/21/17 08:25 Pulse 85 03/21/17 08:25 Resp 16 03/21/17 08:25 BP 124/63 03/21/17 08:25 Pulse Ox 94 03/21/17 08:25 GENERAL: Alert and oriented, comfortable appearing. Mental Status: Affect appropriate for circumstances HEENT: Sclerae anicteric. No mucositis or thrush. No other oral or pharyngeal lesions or erythema. Skin: No rashes or petechiae. No evidence of skin malignancy Lymph nodes: No cervical, supraclavicular, axillary, or inguinal adenopathy. Lungs: Clear to auscultation bilaterally. Clear to percussion bilaterally. Cardiovascular: Regular rate and rhythm. No gallops, murmurs, or rubs. Abdomen: Soft, nontender; No organomegaly or masses palpable. Extremities: No edema. No calf swelling or tenderness. No joint deformity. Neurologic: Alert, normal gait; no focal weakness or sensory abnormalities. Results: Laboratory Last Values WBC 19.3 K/mcL (4.3-11.1) H 03/20/17 05:07 RBC 3.83 M/mcL (4.19-5.50) L 03/20/17 05:07 Hgb 10.1 g/dL (12.9-16.9) L 03/20/17 05:07 Hct 30.9 % (37.5-50.1) L 03/20/17 05:07 MCV 80.7 fL (83.0-100.0) L 03/20/17 05:07 MCH 26.4 pg (28.0-33.3) L 03/20/17 05:07 MCHC 32.7 g/dL (31.6-35.5) 03/20/17 05:07 RDW 13.2 % (11.5-14.5) 03/20/17 05:07 Plt Count 438 K/mcL (140-400) H 03/20/17 05:07 MPV 9.9 fL (9.4-12.4) 03/20/17 05:07 Immature Gran % 0.8 % (0-4) 03/20/17 05:07 Seg Neutrophils % 86.5 % 03/20/17 05:07 Lymphocytes % 7.0 % 03/20/17 05:07 Monocytes % 5.4 % 03/20/17 05:07 Eosinophils % 0.1 % 03/20/17 05:07 Basophils % 0.2 % 03/20/17 05:07 Neutrophils # 16.7 K/mcL (1.6-8.9) H 03/20/17 05:07 Lymphocytes # 1.3 K/mcL (0.6-4.6) 03/20/17 05:07 Monocytes # 1.0 K/mcL (0.0-1.3) 03/20/17 05:07 Eosinophils # 0.0 K/mcL (0.0-0.6) 03/20/17 05:07 Basophils # 0.0 K/mcL (0.0-0.2) 03/20/17 05:07 Immature Plt Fraction 3.2 % (1.1-6.1) 03/19/17 16:20 Sodium 137 mEq/L (136-145) 03/20/17 05:07 Potassium 3.5 mEq/L (3.5-4.5) 03/20/17 05:07 Chloride 102 mEq/L (98-109) 03/20/17 05:07 Carbon Dioxide 26 mEq/L (19-29) 03/20/17 05:07 BUN 17 mg/dL (8-26) 03/20/17 05:07 Creatinine 1.31 mg/dL (0.72-1.25) H 03/20/17 05:07 Est GFR ( Amer) > 60 (> 60) 03/20/17 05:07 Est GFR (Non-Af Amer) 53 (> 60) L 03/20/17 05:07 BUN/Creatinine Ratio 13 (6-26) 03/20/17 05:07 Glucose 126 mg/dL (70-99) H 03/20/17 05:07 POC Glucose 112 (58-89) H 03/20/17 20:26 Calculated Osmolality 287 (280-300) 03/20/17 05:07 Lactic Acid 1.2 mmol/L (0.5-2.2) 03/19/17 20:35 Calcium 9.5 mg/dL (8.6-10.8) 03/20/17 05:07 Iron 13 mcg/dL (65-175) L 03/20/17 05:07 % Saturation 9 % (20-55) L 03/20/17 05:07 Transferrin 106 mg/dL (174-364) L 03/20/17 05:07 Total Bilirubin 1.1 mg/dL (0.2-1.2) 03/20/17 05:07 Direct Bilirubin 0.6 mg/dL (0.0-0.5) H 03/20/17 05:07 Indirect Bilirubin 0.5 mg/dL (0.0-1.2) 03/20/17 05:07 AST 21 Units/L (5-34) 03/20/17 05:07 ALT 13 Units/L (0-55) 03/20/17 05:07 Alkaline Phosphatase 86 Units/L (38-126) 03/20/17 05:07 Troponin I 0.01 ng/mL (0-0.03) 03/19/17 16:20 B-Natriuretic Peptide 62 pg/mL (0-100) 03/19/17 16:20 Serum Total Protein 6.4 g/dL (6.0-8.3) 03/20/17 05:07 Albumin 2.2 g/dL (3.5-5.0) L 03/20/17 05:07 Globulin 4.2 g/dL (2.4-3.5) H 03/20/17 05:07 Albumin/Globulin Ratio 0.5 (1.1-2.2) L 03/20/17 05:07 Vitamin B12 330 pg/mL (213-816) 03/20/17 05:07 Folate 7.0 ng/mL (7.0-31.4) 03/20/17 05:07 Urine Color Dark Yellow (Yellow) 03/19/17 17:17 Urine Clarity Cloudy (Clear) A 03/19/17 17:17 Urine pH 5.5 pH Units (5.0-8.0) 03/19/17 17:17 Ur Specific [place] 1.023 (1.010-1.025) 03/19/17 17:17 Urine Protein 100 mg/dL (Neg-Trace) H 03/19/17 17:17 Urine Glucose (UA) Normal mg/dL (Normal) 03/19/17 17:17 Urine Ketones Negative mg/dL (Negative) 03/19/17 17:17 Urine Blood Negative (Negative) 03/19/17 17:17 Urine Nitrite Negative (Negative) 03/19/17 17:17 Urine Bilirubin Small (Negative) H 03/19/17 17:17 Urine Urobilinogen 4.0 mg/dL (Normal) H 03/19/17 17:17 Ur Leukocyte Esterase Negative (Negative) 03/19/17 17:17 Urine Microscopic RBC 5-15 per hpf (0-3) H 03/19/17 17:17 Urine Microscopic WBC 3-5 per hpf (0-3) H 03/19/17 17:17 Ur Squamous Epith Cells Many per lpf (None-Few) H 03/19/17 17:17 Urine Bacteria None Seen per hpf (None-Few) 03/19/17 17:17 Hyaline Casts None Seen per lpf (None-Few) 03/19/17 17:17 Ur Culture Indicated? NO (NO) 03/19/17 17:17 Radiographic studies: I personally reviewed and interpreted patient's most recent imaging studies dated 03/20/17. I discussed the findings with the patient today. Chest X-Ray 03/19/17 16:03 IMPRESSION: Patchy opacity in the right lower lung zone, concerning for pneumonia. Follow-up radiographs recommended in 6-8 weeks to document resolution. D/ / Alo Dowell MD / Alo Dowell MD Interpreting Provider: Alo Dowell MD Abdomen/Pelvis CT 03/20/17 16:30 IMPRESSION: Markedly enlarged prostate gland with diffuse wall thickening the urinary bladder suggesting chronic outlet obstruction. Correlation with PSA levels is recommended. Partially visualized irregular wall thickening of the intrathoracic esophagus compatible with known mass. No evidence of intra-abdominal metastatic disease. D/ / Chika Flores Cha, MD / Chika Flores Cha, MD Interpreting Provider: Chika Flores Cha, MD Chest CT 03/20/17 16:30 IMPRESSION: 1. Circumferential distal esophageal mass with extension and possible communication into the right lower lobe. 2. Multiple enlarged posterior mediastinal lymph nodes and right hilar lymph nodes. The largest node drapes around the descending thoracic aorta. 3. Extensive consolidation in the right lower lobe concerning for pneumonia and likely related to the distal esophageal mass and possible communication into the lung parenchyma. No leak of enteric contrast. 4. Small right pleural effusion. Trace left pleural effusion. No pneumothorax. D/ / 03/20/2017 17:46:03 [facility] Inter[facility]ting Provider: Jim Friedman MD Impression/recommendations: Suspected esophageal cancer: Like local regionally advanced. I had a detailed discussion with the patient and family members present today regarding diagnostic considerations for his current presentation. Based on his recent endoscopy and imaging, this esophageal cancer also proven otherwise. In the absence of distant metastatic disease, he may still be a candidate for curative intent therapy. There is concern about tolerability of treatment based on his advanced age and extent of involvement. He will need definitive staging with a PET CT scan and possible EUS for soco evaluation. This can be completed as an outpatient and if he is medically optimal otherwise , he can be discharged over the weekend. We will review his case in the multidisciplinary tumor conference regarding multimodality management. Nutrition consult prior to discharge may be helpful to provide recommendations regarding nutritional supplement while his workup is ongoing and to prevent further weight loss/clinical decline. Anemia: Microcytic. Anemia workup suggest iron deficiency. I do not have a ferritin level. This is likely iron deficiency anemia due to occult blood loss from esophageal malignancy. Anemia is of the mild severity and no acute intervention needed for his current hemoglobin. He will need iron supplement. I do not believe he is able to tolerate oral iron supplementation due to obstructing esophageal mass. We'll arrange for iron infusions which can be done as an outpatient if he is ready for discharge otherwise. Leukocytosis and thrombocytosis versus likely reactive due to malignancy. He's been afebrile over the last 24 hours and no other signs of infection. I agree with empiric antibody coverage as you're doing. Enlarged prostate: Noted on recent abdomen/pelvis CT. No recent PSA we will order PSA and possibly add on 2 labs from 03/20/17. We'll follow the patient peripherally with you. Please call with interval oncologic questions.. Thank you for your excellent ongoing care for allowing us to see him while in- house. This report was created using voice recognition software and may contain errors. It was signed but not edited to expedite communication. Corrections will be made in a separate addendum as needed. Past Med Surg Social Fam HX - Past Medical History Medical history: hypertension - Past Surgical History Surgical History: no surgical history - Social History Smoking Status: Former smoker (50 years ago) Alcohol use: rarely Drug use: none Medications and Allergies Aspirin [Lo-Dose Aspirin EC] 81 mg PO BID 03/19/17 [History] Atorvastatin [Lipitor] 40 mg PO HS 03/19/17 [History] Ferrous Sulfate [Iron] 325 mg PO DAILY 03/19/17 [History] Furosemide [Lasix] 20 mg PO DAILY 03/19/17 [History] Multivitamin [Multi-Day Vitamins] 1 tab PO DAILY 03/19/17 [History] Portis-3/Dha/Epa/Fish Oil [[place]is 3 500 Softgel] 1 cap PO DAILY 03/19/17 [History] Omeprazole [PriLOSEC] 40 mg PO DAILY 03/19/17 [History] metFORMIN [Glucophage] 500 mg PO BID 03/19/17 [History] Allergies No Known Allergies Allergy (Verified 03/19/17 16:21) Oncology - Exam - Constitutional Vitals: Temp Pulse Resp BP Pulse Ox 98.6 F 85 16 124/63 94 03/21/17 08:25 03/21/17 08:25 03/21/17 08:25 03/21/17 08:25 03/21/17 08:25 Consult Discharge Plan - Plan Instructions: Diabetes Mellitus Type 2 in Adults (DC), Chronic Dysphagia (DC) Referrals: Bethany Morocho MD [Primary Care Provider] - (web request sent on ) Leo Noriega MD [Partnered Physician] - (web request 03/20/17)
[2017-03-21] MEDS ORDERED: *HR* Propofol 200 MG/20 ML VIAL IVP ONE (10:32)
[2017-03-21] MEDS ORDERED: Lidocaine -MPF 2% 5 ML VIAL INFILT ONE (10:32)
== END 2017-03-21 10:33 | disposition home or self-care (01) ==
LOC: 2ANU 16:00 → EMEROO 16:00 → SUATTDRO 19:08 → 2ANU 19:54
PROVIDERS: ADMIT Nurse Practitioner Acute Care; ATTEND Internal Medicine

== ENCOUNTER 2017-05-03 12:57 | Observation (INO) ==
--- NOTE | 2017-05-03 13:51 | Emergency Department Note ---
Disposition Clinical Impression: Urinary retention, Urinary obstruction, LUNA (acute kidney injury) Urinary tract infection Qualifiers: Urinary tract infection type: acute cystitis Hematuria presence: without hematuria Qualified Code(s): N30.00 - Acute cystitis without hematuria Disposition: Admitted As Inpatient Condition: Good Male Urogenital HPI - General Chief complaint: ED Urogenital-Male Stated complaint: From Dr Elmore For IV Medications Time Seen by Provider: 05/03/17 13:05 Source: patient, family Limitations: no limitations Vital Signs Reviewed: Yes - History of Present Illness HPI Narrative: Patient is an 81-year-old male with past medical history of esophageal cancer and began chemotherapy last Thursday presented to the ED today with decreased ability to urinate. 2 days ago patient had a burning sensation while urinating and was started on Cipro yesterday by Dr. Elmore his oncologist after he called in. Patient states that he has had decreased urination since yesterday. Patient states that he does not feel like he has to go. Patient denies hematuria, fever, chills, dizziness. Patient is currently on carboplatin, Taxol , and Neulasta. Patient denies weakness, shortness breath, chest pain, abdominal pain, diarrhea. - Related Data Home Medications Medication Instructions Recorded Confirmed Aspirin [Lo-Dose Aspirin EC] 81 mg PO BID 03/19/17 05/03/17 Atorvastatin [Lipitor] 40 mg PO HS 03/19/17 05/03/17 Ferrous Sulfate [Iron] 325 mg PO DAILY 03/19/17 05/03/17 Furosemide [Lasix] 20 mg PO DAILY 03/19/17 05/03/17 Multivitamin [Multi-Day Vitamins] 1 tab PO DAILY 03/19/17 05/03/17 [place]-3/Dha/Epa/Fish Oil [[place] 3 1 cap PO DAILY 03/19/17 05/03/17 500 Softgel] Ciprofloxacin HCl [Cipro] 500 mg PO BID 05/03/17 05/03/17 Previous Rx's Medication Instructions Recorded Lidocaine/Prilocaine [Emla] 1 appl TP AD #30 gm 04/13/17 Ondansetron HCl [Zofran] 4 mg PO Q6H PRN #40 tablet 04/13/17 Prochlorperazine Maleate 10 mg PO Q6HR PRN #40 tablet 04/13/17 [Compazine] Allergies Allergy/AdvReac Type Severity Reaction Status Date / Time No Known Allergies Allergy Verified 04/10/17 15:00 Review of Systems: ROS: constitutional: Denies fever, chills, weakness, dizziness HEENT: denies Headaches, changes in vision Resp: denies shortness of breath, coughing CV: Denies chest pain, lower extremity edema GI: Denies nausea, vomiting, diarrhea, constipation, hematochezia, abdominal pain : admits to dysuria, oliguria, denies hematuria Skin: Denies rashes, new lesions All systems ED: reviewed and negative except as stated. Review of Systems: As Per HPI Constitutional: Denies: fever, chills, weakness Gastrointestinal: Denies: nausea, vomiting Past Medical History - Past Medical History Medical history: Reports: cancer, hypertension Surgical history: Reports: no surgical history Psychiatric history: Reports: no psych history - Social History Smoking Status: Former smoker Smokeless Tobacco Status: Yes Alcohol use: Reports: rarely Drug use: Reports: none Physical Exam Constitutional: Alert, in no acute distress, well nourished, well developed. Head: Normocephalic, atraumatic, normal contour and symmetric, no masses, lesions or scars Heart: Normal, regular rate and rhythm, no murmurs Lungs: Clear to auscultation, no wheezes, rales, or rhonchi Abdomen: Soft, nondistended, nontender, and no masses palpable, bowel sounds present and normal, no guarding or rigidity. Extremities: No clubbing, cyanosis, or edema, radial pulse +2/4, capillary refill <2sec. Skin: Skin warm and dry, no lesions, no rashes, no jaundice Neurologic: Cranial nerves II through XII grossly intact, no focal deficits, strength within normal limits in all extremities Psych: Cooperative with exam, good eye contact, cognitive function intact, judgment good insight good, speech clear, thought process logical, and goal directed - General Limitations: no limitations General appearance: alert, in no apparent distress Course Course Narrative: Patient is an 81-year-old male with past medical history of esophageal cancer and began chemotherapy last Thursday presented to the ED today with decreased ability to urinate. CT of abdomen and pelvis showed "Severe prostatic enlargement, with severe distention of the urinary bladder compatible with bladder outlet obstruction. This is resulting in secondary bilateral hydronephrosis." Comer catheter was placed and with initial 500ml of urine output. Patient's urine was negative for a UTI. His WBC was 29 which could be due to taking Neulasta after chemotherapy which increases WBCs. Patient's creatinine was elevated to 2.3 from 1.03 04/27/17. Hospitalist: Patient is admitted to the hospital for urinary retention with obstruction and elevation in creatinine. Vital Signs Temperature 97.8 F 05/03/17 12:58 Pulse Rate 98 05/03/17 12:58 Respiratory Rate 18 05/03/17 12:58 Blood Pressure 148/75 05/03/17 12:58 O2 Sat by Pulse Oximetry 97 05/03/17 12:58 Temperature 97.8 F 05/03/17 12:58 Pulse Rate 98 05/03/17 12:58 Respiratory Rate 18 05/03/17 12:58 Blood Pressure 148/75 05/03/17 12:58 O2 Sat by Pulse Oximetry 97 05/03/17 12:58 Oxygen Delivery Oxygen Delivery Room Air Urogenital-Male - MDM Narrative Medical decision making narrative: Patient's vitals are stable on patient was diagnosed with urinary obstruction from his prostate and urinary retention. Patient was admitted to the hospital for elevated creatinine and follow-up with . - Medical Records Medical records reviewed: Yes I reviewed the patient's medical records. - Lab Data Lab results reviewed: Yes I reviewed the patient's lab results. Lab results narrative: All Lab Results (24 Hours) 05/03/17 05/03/17 05/03/17 Range/Units 14:36 14:36 14:45 WBC 29.0 H (4.3-11.1) K/mcL RBC 3.71 L (4.19-5.50) M/mcL Hgb 10.2 L (12.9-16.9) g/dL Hct 31.7 L (37.5-50.1) % MCV 85.4 (83.0-100.0) fL MCH 27.5 L (28.0-33.3) pg MCHC 32.2 (31.6-35.5) g/dL RDW 16.2 H (11.5-14.5) % Plt Count 229 (140-400) K/mcL MPV 10.4 (9.4-12.4) fL Seg Neutrophils % 72.0 % Band Neutrophils % 12.0 H (0-4) % Lymphocytes % 10.0 % Monocytes % 6.0 % Neutrophils # 24.4 H (1.6-8.9) K/mcL Lymphocytes # 2.9 (0.6-4.6) K/mcL Monocytes # 1.7 H (0.0-1.3) K/mcL Toxic Granulation Present A (Not Present) Platelet Estimate Normal (Normal) Polychromasia 1+ A (Not Present) Sodium 133 L (136-145) mEq/L Potassium 3.3 L (3.5-4.5) mEq/L Chloride 97 L (98-109) mEq/L Carbon Dioxide 27 (19-29) mEq/L BUN 18 (8-26) mg/dL Creatinine 2.35 H (0.72-1.25) mg/dL Est GFR ( Amer) 32 L (> 60) Est GFR (Non-Af Amer) 27 L (> 60) BUN/Creatinine Ratio 8 (6-26) Glucose 138 H (70-99) mg/dL Calculated Osmolality 280 (280-300) Calcium 9.6 (8.6-10.8) mg/dL Ur Specimen Adequacy See below A Urine Color [place] A (Yellow) Urine Clarity Clear (Clear) Urine pH TNP Ur Specific [place] TNP Urine Protein TNP Urine Glucose (UA) TNP Urine Ketones TNP Urine Blood TNP Urine Nitrite TNP Urine Bilirubin TNP Urine Urobilinogen TNP Ur Leukocyte Esterase TNP Urine Microscopic RBC 5-15 H (0-3) per hpf Urine Microscopic WBC 0-3 (0-3) per hpf Ur Squamous Epith Cells Few (None-Few) per lpf Urine Bacteria Few (None-Few) per hpf Hyaline Casts Test Not Performed Ur Culture Indicated? NO (NO) Result diagrams: 05/03/17 14:36 05/03/17 14:36 Lab Results 05/03/17 05/03/17 05/03/17 Range/Units 14:36 14:36 14:45 WBC 29.0 H (4.3-11.1) K/mcL RBC 3.71 L (4.19-5.50) M/mcL Hgb 10.2 L (12.9-16.9) g/dL Hct 31.7 L (37.5-50.1) % MCV 85.4 (83.0-100.0) fL MCH 27.5 L (28.0-33.3) pg MCHC 32.2 (31.6-35.5) g/dL RDW 16.2 H (11.5-14.5) % Plt Count 229 (140-400) K/mcL MPV 10.4 (9.4-12.4) fL Seg Neutrophils % 72.0 % Band Neutrophils % 12.0 H (0-4) % Lymphocytes % 10.0 % Monocytes % 6.0 % Neutrophils # 24.4 H (1.6-8.9) K/mcL Lymphocytes # 2.9 (0.6-4.6) K/mcL Monocytes # 1.7 H (0.0-1.3) K/mcL Toxic Granulation Present A (Not Present) Platelet Estimate Normal (Normal) Polychromasia 1+ A (Not Present) Sodium 133 L (136-145) mEq/L Potassium 3.3 L (3.5-4.5) mEq/L Chloride 97 L (98-109) mEq/L Carbon Dioxide 27 (19-29) mEq/L BUN 18 (8-26) mg/dL Creatinine 2.35 H (0.72-1.25) mg/dL Est GFR ( Amer) 32 L (> 60) Est GFR (Non-Af Amer) 27 L (> 60) BUN/Creatinine Ratio 8 (6-26) Glucose 138 H (70-99) mg/dL Calculated Osmolality 280 (280-300) Calcium 9.6 (8.6-10.8) mg/dL Ur Specimen Adequacy See below A Urine Color [place] A (Yellow) Urine Clarity Clear (Clear) Urine pH TNP Ur Specific [place] TNP Urine Protein TNP Urine Glucose (UA) TNP Urine Ketones TNP Urine Blood TNP Urine Nitrite TNP Urine Bilirubin TNP Urine Urobilinogen TNP Ur Leukocyte Esterase TNP Urine Microscopic RBC 5-15 H (0-3) per hpf Urine Microscopic WBC 0-3 (0-3) per hpf Ur Squamous Epith Cells Few (None-Few) per lpf Urine Bacteria Few (None-Few) per hpf Hyaline Casts Test Not Performed Ur Culture Indicated? NO (NO) - Radiology Data Radiology results reviewed: Yes I reviewed the patient's radiology results. Abdomen/Pelvis CT 05/03/17 13:50 IMPRESSION: 1. Severe prostatic enlargement, with severe distention of the urinary bladder compatible with bladder outlet obstruction. This is resulting in secondary bilateral hydronephrosis 2. Mass of the distal esophagus, a known finding 3. Improving pneumonia in the right lower lobe D/ / Baldomero Solis MD / Baldomero Solis MD Interpreting Provider: Baldomero Solis MD Attestation Statement - Attestation Attestation: I examined this patient and my medical decision-making was reviewed with the Resident Physician. I agree with the documented findings, disposition and treatment plan as described except to the extent set forth below. She came in for sending with history of dysuria for 2 days now is having inability to urinate. Denies any fevers chills nausea vomiting. He did receive chemotherapy and also Neulasta injection O week ago. CT scan shows a large prostate with acute urinary retention and bladder was decompressed with a Comer catheter gentle IV hydration and IV antibiotics will place on the hospitalist service.
[2017-05-03 14:46] LABS: Mean Platelet Volume 10.4 fL (9.4-12.4); Red Blood Count 3.71 M/mcL (4.19-5.50)
[2017-05-03 14:47] LABS: Hematocrit 31.7 % (37.5-50.1); Hemoglobin 10.2 g/dL (12.9-16.9); Mean Corpuscular HGB Conc 32.2 g/dL (31.6-35.5); Mean Corpuscular Hemoglobin 27.5 pg (28.0-33.3); Mean Corpuscular Volume 85.4 fL (83.0-100.0); Platelet Count 229 K/mcL (140-400); Red Cell Distribution Width 16.2 % (11.5-14.5)
[2017-05-03 14:58] LABS: Clarity,Urine Clear (Clear); Color,Urine Orange (Yellow)
[2017-05-03 14:59] LABS: Calcium 9.6 mg/dL (8.6-10.8); Potassium 3.3 mEq/L (3.5-4.5)
[2017-05-03 15:03] LABS: Lymphocytes # 2.9 K/mcL (0.6-4.6); Monocytes # 1.7 K/mcL (0.0-1.3); Neutrophils # 24.4 K/mcL (1.6-8.9); Platelet Estimate Normal (Normal)
[2017-05-03 15:04] LABS: Polychromasia 1+ (Not Present); Toxic Granulation Present (Not Present)
[2017-05-03 15:09] LABS: Squamous Epithelial Cell,Urine Few per lpf (None-Few)
[2017-05-03] MEDS ORDERED: 0.9 % Sodium Chloride 1,000 ML IVC ONE (15:10)
[2017-05-03 15:11] LABS: Bacteria,Urine Few per hpf (None-Few); WBC,Urine 0-3 per hpf (0-3)
--- NOTE | 2017-05-03 15:46 | Internal Med History&Physical ---
Date of Encounter: 05/03/17 Time of Encounter: 15:39 Assessment and Plan (1) Urinary retention Current visit: Yes Status: Acute 2/2 severely enlarged prostate. 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 Seen by Dr. Monroy, PSA was elevated. given his frail condition, he only received Lupron injection and is due every 6 months. Status post Comer and drainage of 1800 mL of urine. We will continue the Comer for now, consult urology for further recommendation. unclear if there is any role of doxazosin and finasteride at this point with this being most likely a cancer, will still start on those and follow up with urology. 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 Noriega and is undergoing chemotherapy, recently got chemo along with neulasta (4) Diabetes mellitus Current visit: No Status: Chronic Qualifiers: Diabetes mellitus type: type 2 Diabetes mellitus complication detail: with chronic kidney disease Diabetes mellitus alf insulin use: without alf use Chronic kidney disease stage: stage 3 (moderate) Qualified Code(s) : E11.22 - Type 2 diabetes mellitus with diabetic chronic kidney disease; N18.3 - Chronic kidney disease, stage 3 (moderate) (5) Urinary tract infection Current visit: Yes Status: Acute has urinary symptoms and was recently started on oral cipro by oncology. UA does not appear to be infected at this time, howveer has wbc of 29 with left shift. unclear if he has residual UTI or this is from neulasta, will emperically treat with rocephin and de-escalate as needed. Qualifiers: Urinary tract infection type: acute cystitis Hematuria presence: without hematuria Qualified Code(s): N30.00 - Acute cystitis without hematuria (6) LUNA (acute kidney injury) Current visit: Yes Status: Acute has LUNA on CKD most likely 2/2 post obstructive uropathy from severe prostatic enlargement. Due to urinary retention, patient has developed bilateral hydronephrosis. Creatinine has bumped up compared to previous. Status post drainage of 1800 mL of urine via Comer today. We will continue the Comer catheter for now, we will follow neurology recommendation. Follow Chem-7. Internal Medicine - H&P: HPI Chief complaint: difficulty passing urine Admitted From: Emergency Dept Plans for Post Hospital Care: Home History of present illness: Mr. Tyler is a 81 year old male with past medical history of esophageal cancer and began CML last Thursday presented to the ED today with decreased ability to urinate. 2 days ago patient had a burning sensation while urinating and was started on Cipro yesterday by Dr. Elmore his oncologist after he called in and said that he is having burning with urination. Patient states that he has had decreased urination since yesterday. Patient denies hematuria, fever, chills, dizziness. Patient is currently on carboplatin and Taxol. Patient denies weakness, shortness breath, chest pain, abdominal pain, diarrhea. He is also followed by Dr. Diaz for urinary symptoms, given massive prostatic enlargement and history of metastatic esophageal cancer, he most likely has prostatic cancer, however given his frail condition, he was only eligible for Lupron injections every 6 months. his next follow-up is on September. At ED, CT abdomen was done which showed retention of urine with severe to enlarged prostate. Comer was placed and 1800 mL of urine was drained. Past Med Surg Social Fam HX - Past Medical History Medical history: cancer, hypertension Psychiatric history: no psych history - Past Surgical History Surgical History: no surgical history - Social History Smoking Status: Former smoker Smokeless Tobacco Status: Yes Alcohol use: rarely Drug use: none Internal Medicine - H&P: Meds Aspirin [Lo-Dose Aspirin EC] 81 mg PO BID 03/19/17 [History] Atorvastatin [Lipitor] 40 mg PO HS 03/19/17 [History] Ferrous Sulfate [Iron] 325 mg PO DAILY 03/19/17 [History] Furosemide [Lasix] 20 mg PO DAILY 03/19/17 [History] Multivitamin [Multi-Day Vitamins] 1 tab PO DAILY 03/19/17 [History] [place]-3/Dha/Epa/Fish Oil [[place] 3 500 Softgel] 1 cap PO DAILY 03/19/17 [History] Lidocaine/Prilocaine [Emla] 1 appl TP AD #30 gm 04/13/17 [Rx] Ondansetron HCl [Zofran] 4 mg PO Q6H PRN #40 tablet 04/13/17 [Rx] Prochlorperazine Maleate [Compazine] 10 mg PO Q6HR PRN #40 tablet 04/13/17 [Rx] Ciprofloxacin HCl [Cipro] 500 mg PO BID 05/03/17 [History] Allergies No Known Allergies Allergy (Verified 04/10/17 15:00) All Systems PM: A 10-system review of systems was performed and is negative for pertinent findings except as documented above in the HPI. - Constitutional Constitutional: as per HPI - EENT Eyes: as per HPI Ears: as per HPI Nose, mouth and throat: as per HPI - Breasts Breasts: as per HPI - Cardiovascular Cardiovascular ROS IM: as per HPI - Respiratory Respiratory: as per HPI - Gastrointestinal Gastrointestinal: as per HPI - Genitourinary Genitourinary ROS male: as per HPI - Musculoskeletal Musculoskeletal ROS IM: as per HPI - Constitutional Vitals: Temp Pulse Resp BP Pulse Ox 97.8 F 98 18 148/75 97 05/03/17 12:58 05/03/17 12:58 05/03/17 12:58 05/03/17 12:58 05/03/17 12:58 General appearance: Present: A&O X 3, no acute distress Exam: Appears cachectic. neck- supple Chest bilateral clear, no added sounds. CVS S1-S2, no murmurs rubs or gallops. Abdomen soft, nontender, bowel sounds are present. Extremities no edema. Neuro no focal neuro deficits. Internal Med - H&P Results - Labs CBC & Chem 7: 05/03/17 14:36 05/03/17 14:36 Labs: Short CBC 05/03/17 Range/Units 14:36 WBC 29.0 H (4.3-11.1) K/mcL Hgb 10.2 L (12.9-16.9) g/dL Hct 31.7 L (37.5-50.1) % Plt Count 229 (140-400) K/mcL Neutrophils # 24.4 H (1.6-8.9) K/mcL BMP 05/03/17 14:36 Sodium 133 L Potassium 3.3 L Chloride 97 L Carbon Dioxide 27 BUN 18 Creatinine 2.35 H Glucose 138 H Calcium 9.6 Urine 05/03/17 Range/Units 14:45 Urine Color [place] A (Yellow) Urine Clarity Clear (Clear) Urine pH TNP Ur Specific [place] TNP Urine Protein TNP Urine Glucose (UA) TNP - Impressions ITS Impressions Abdomen/Pelvis CT 05/03/17 13:50 IMPRESSION: 1. Severe prostatic enlargement, with severe distention of the urinary bladder compatible with bladder outlet obstruction. This is resulting in secondary bilateral hydronephrosis 2. Mass of the distal esophagus, a known finding 3. Improving pneumonia in the right lower lobe D/ / Baldomero Solis MD / Baldomero Solis MD Interpreting Provider: Baldomero Solis MD
[2017-05-03] MEDS ORDERED: Naloxone 0.4 MG/ML INJ IVP PRN (16:04)
[2017-05-03] MEDS ORDERED: Finasteride 5 MG TABLET PO SCH (16:15)
[2017-05-03] MEDS: 0.9 % Sodium Chloride 1,000 ML IVC SCH ×2 (18:55→23:12)
[2017-05-03] MEDS: Aspirin Enteric Coated 81 MG Tablet PO SCH (20:16)
[2017-05-04 05:37] LABS: Calcium 8.7 mg/dL (8.6-10.8); Potassium 3.4 mEq/L (3.5-4.5)
[2017-05-04 06:39] LABS: Red Cell Distribution Width 16.1 % (11.5-14.5)
[2017-05-04 06:41] LABS: Hematocrit 27.6 % (37.5-50.1); Hemoglobin 8.9 g/dL (12.9-16.9); Mean Corpuscular HGB Conc 32.2 g/dL (31.6-35.5); Mean Corpuscular Hemoglobin 27.2 pg (28.0-33.3); Mean Corpuscular Volume 84.4 fL (83.0-100.0); Mean Platelet Volume 10.5 fL (9.4-12.4); Platelet Count 219 K/mcL (140-400); Red Blood Count 3.27 M/mcL (4.19-5.50)
--- NOTE | 2017-05-04 08:01 | Urology - Consult Note ---
Date of Encounter: 05/04/17 Time of Encounter: 07:58 - Assessment and Plan (1) Urinary retention Current Visit: Yes Status: Acute Assessment and plan: Keep Comer catheter in place at this time. We will continue with Flomax and stop finasteride. Patient will need to keep his catheter in place for 7-10 days. We will need to follow-up in my office for voiding trial that time. Urology CN:HPI Consult date: 05/04/17 Reason for consult Urology: Other (urinary retention) Requesting physician: Wolfgang Tyler History of present illness: Teri is a 81-year-old male with a history of elevated PSA who was started on Lupron therapy secondary to not being able to undergo prostate needle biopsy. Patient's PSA was 95. Patient now admitted secondary to urinary retention. CT scan revealed markedly enlarged prostate with markedly distended bladder. Urinary catheter was placed. Past Med Surg Social Fam HX - Past Medical History Medical history: cancer, hypertension Psychiatric history: no psych history - Past Surgical History Surgical History: no surgical history - Social History Smoking Status: Former smoker Smokeless Tobacco Status: Yes Alcohol use: rarely Drug use: none - Family History Mother History Unknown: Yes Medications and Allergies Aspirin [Lo-Dose Aspirin EC] 81 mg PO BID 03/19/17 [History] Atorvastatin [Lipitor] 40 mg PO HS 03/19/17 [History] Ferrous Sulfate [Iron] 325 mg PO DAILY 03/19/17 [History] Furosemide [Lasix] 20 mg PO DAILY 03/19/17 [History] Multivitamin [Multi-Day Vitamins] 1 tab PO DAILY 03/19/17 [History] [place]-3/Dha/Epa/Fish Oil [[place] 3 500 Softgel] 1 cap PO DAILY 03/19/17 [History] Lidocaine/Prilocaine [Emla] 1 appl TP AD #30 gm 04/13/17 [Rx] Ondansetron HCl [Zofran] 4 mg PO Q6H PRN #40 tablet 04/13/17 [Rx] Prochlorperazine Maleate [Compazine] 10 mg PO Q6HR PRN #40 tablet 04/13/17 [Rx] Ciprofloxacin HCl [Cipro] 500 mg PO BID 05/03/17 [History] Allergies No Known Allergies Allergy (Verified 04/10/17 15:00) Review of Systems - Constitutional no chills - EENT Nose, mouth and throat: no dizziness - Cardiovascular no chest pain - Respiratory no cough - Gastrointestinal no abdominal pain - Genitourinary as per HPI - Musculoskeletal no back pain - Integumentary no erythema - Neurological no confusion - Psychiatric no anxiety - Hematologic/Lymphatic no easy bleeding Exam Initial Vital Signs Temp Pulse Resp BP Pulse Ox 97.8 F 98 18 148/75 97 05/03/17 12:58 05/03/17 12:58 05/03/17 12:58 05/03/17 12:58 05/03/17 12:58 - General physical appearance Present: well developed - Eyes Present: PERRL - ENT Present: normal nares - Neck Present: no masses - Respiratory Present: normal respiratory effort - Cardiovascular Cardiovascular exam IM: RRR - Abdomen Abdomen: Present: soft - Genitourinary other (urine clear) Urology Results - Labs 05/04/17 05:10 05/04/17 05:10 Abnormal lab results WBC 26.4 K/mcL (4.3-11.1) H 05/04/17 05:10 RBC 3.27 M/mcL (4.19-5.50) L 05/04/17 05:10 Hgb 8.9 g/dL (12.9-16.9) L 05/04/17 05:10 Hct 27.6 % (37.5-50.1) L 05/04/17 05:10 MCH 27.2 pg (28.0-33.3) L 05/04/17 05:10 RDW 16.1 % (11.5-14.5) H 05/04/17 05:10 Band Neutrophils % 12.0 % (0-4) H 05/03/17 14:36 Neutrophils # 24.4 K/mcL (1.6-8.9) H 05/03/17 14:36 Monocytes # 1.7 K/mcL (0.0-1.3) H 05/03/17 14:36 Toxic Granulation Present (Not Present) A 05/03/17 14:36 Polychromasia 1+ (Not Present) A 05/03/17 14:36 Potassium 3.4 mEq/L (3.5-4.5) L 05/04/17 05:10 Creatinine 1.50 mg/dL (0.72-1.25) H 05/04/17 05:10 Est GFR ( Amer) 54 (> 60) L 05/04/17 05:10 Est GFR (Non-Af Amer) 45 (> 60) L 05/04/17 05:10 Glucose 100 mg/dL (70-99) H 05/04/17 05:10 POC Glucose 184 (58-89) H 05/03/17 20:31 Ur Specimen Adequacy See below A 05/03/17 14:45 Urine Color [place] (Yellow) A 05/03/17 14:45 Urine Microscopic RBC 5-15 per hpf (0-3) H 05/03/17 14:45 Diabetes panel 05/04/17 Range/Units 05:10 Sodium 139 (136-145) mEq/L Potassium 3.4 L (3.5-4.5) mEq/L Chloride 105 (98-109) mEq/L Carbon Dioxide 28 (19-29) mEq/L BUN 13 (8-26) mg/dL Creatinine 1.50 H (0.72-1.25) mg/dL Glucose 100 H (70-99) mg/dL Calcium 8.7 (8.6-10.8) mg/dL Calcium panel 05/04/17 Range/Units 05:10 Calcium 8.7 (8.6-10.8) mg/dL Pituitary panel 05/04/17 Range/Units 05:10 Sodium 139 (136-145) mEq/L Potassium 3.4 L (3.5-4.5) mEq/L Chloride 105 (98-109) mEq/L Carbon Dioxide 28 (19-29) mEq/L BUN 13 (8-26) mg/dL Creatinine 1.50 H (0.72-1.25) mg/dL Glucose 100 H (70-99) mg/dL Calcium 8.7 (8.6-10.8) mg/dL Adrenal panel 05/04/17 Range/Units 05:10 Sodium 139 (136-145) mEq/L Potassium 3.4 L (3.5-4.5) mEq/L Chloride 105 (98-109) mEq/L Carbon Dioxide 28 (19-29) mEq/L BUN 13 (8-26) mg/dL Creatinine 1.50 H (0.72-1.25) mg/dL Glucose 100 H (70-99) mg/dL Calcium 8.7 (8.6-10.8) mg/dL All other labs normal. - Imaging CT scan - abdomen: image reviewed CT scan - pelvis: image reviewed Consult Discharge Plan - Plan Referrals: Bethany Morocho MD [Primary Care Provider] -
[2017-05-04] MEDS: Aspirin Enteric Coated 81 MG Tablet PO SCH (08:34)
[2017-05-04 08:42] LABS: Anisocytosis 1+ (Not Present); Lymphocytes # 2.6 K/mcL (0.6-4.6); Monocytes # 1.6 K/mcL (0.0-1.3); Neutrophils # 22.2 K/mcL (1.6-8.9); Platelet Estimate Normal (Normal)
[2017-05-04] MEDS ORDERED: Multivit/Ca/Min/Fe/FA 1 TAB TABLET PO SCH (09:00)
[2017-05-04] MEDS ORDERED: *HR* Enoxaparin 30 MG/0.3 ML SYRINGE SQ SCH (09:00)
[2017-05-04 11:13] VITALS: BP 109/63
[2017-05-04] MEDS: 0.9 % Sodium Chloride 1,000 ML IVC SCH (12:42)
--- NOTE | 2017-05-04 14:02 | Discharge Summary ---
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 Priority: Secondary Status: Acute (5) LUNA (acute kidney injury) Priority: Secondary Status: Resolved - Discharge Medications Prescriptions: Tamsulosin [Flomax] 0.4 mg PO DAILY #30 Home Medications: Aspirin [Lo-Dose Aspirin EC] 81 mg PO BID 03/19/17 [History] Atorvastatin [Lipitor] 40 mg PO HS 03/19/17 [History] Ferrous Sulfate [Iron] 325 mg PO DAILY 03/19/17 [History] Furosemide [Lasix] 20 mg PO DAILY 03/19/17 [History] Multivitamin [Multi-Day Vitamins] 1 tab PO DAILY 03/19/17 [History] [place]-3/Dha/Epa/Fish Oil [[place] 3 500 Softgel] 1 cap PO DAILY 03/19/17 [History] Lidocaine/Prilocaine [Emla] 1 appl TP AD #30 gm 04/13/17 [Rx] Ondansetron HCl [Zofran] 4 mg PO Q6H PRN #40 tablet 04/13/17 [Rx] Prochlorperazine Maleate [Compazine] 10 mg PO Q6HR PRN #40 tablet 04/13/17 [Rx] Ciprofloxacin HCl [Cipro] 500 mg PO BID 05/03/17 [History] Tamsulosin [Flomax] 0.4 mg PO DAILY #30 05/04/17 [Rx] Allergies/Adverse Reactions: Allergies No Known Allergies Allergy (Verified 04/10/17 15:00) Date of admission: 05/03/17 16:18 Primary care physician: Bethany Galicia - Patient Status Disposition: Home Health Service Condition: Good Overall status at discharge: patient is back to baseline - Discharge Instructions Follow Up With: Bethany Morocho MD [Primary Care Provider] - Additional Instructions: Need to f/u with PCP in one week Need to f/u with Heme Onc in 1-2 weeks Need to f/u with Urologist Dr. Monroy in one week continue ko catheter until you see your Urologist - Diet and Activity Activity: increase activity as tolerated Diet: advance to your usual diet Hospital course: Mr. Tyler is a 81 year old male with past medical history of esophageal cancer and began CML last Thursday presented to the ED y/d with decreased ability to urinate. 2 days ago patient had a burning sensation while urinating and was started on Cipro [address] Elmore his oncologist after he called in and said that he is having burning with urination. Patient states that he has had decreased urination since yesterday. Patient denies hematuria, fever, chills, dizziness. Patient is currently on carboplatin and Taxol. Patient denies weakness, shortness breath, chest pain, abdominal pain, diarrhea. He is also followed by Dr. Diaz for urinary symptoms, given massive prostatic enlargement and history of metastatic esophageal cancer, he most likely has prostatic cancer, he was started on chemo recently. Pt was admitted here for urinary retention due to enlarged prostate. He had Ko catheter placed in, urology did evaluated the pt and recommend to continue Ko until he sees urologist as an out pt. Pt remained afebrile through this hospitalization. His UA is completely benign no source of infection, however he was already on PO cipro as an out pt, so recommend to continue the full course. He also does have chronically elevated WBC mostly due to his underline malignancy. Pt is going to f/u with Heme Onc as an out pt in 1 week. - Time Spent with Patient Total time spent providing and/or coordinating discharge services: - Constitutional Vitals: Temp Pulse Resp BP Pulse Ox 98.0 F 78 16 109/63 96 05/04/17 11:09 05/04/17 11:09 05/04/17 11:09 05/04/17 11:05/04/17 11:09 General appearance: Present: A&O X 3, no acute distress - Head Head exam: Present: atraumatic, normal inspection - Respiratory Respiratory exam: Present: decreased breath sounds, wheezes. Absent: respiratory distress, rhonchi - Cardiovascular Cardiovascular exam: Present: RRR, +S1, +S2. Absent: systolic murmur - Extremities Exam Extremities exam: Absent: calf tenderness, pedal edema, tenderness - Neurological Exam Neurological exam: Present: alert, oriented X3 - Psychiatric Psychiatric exam: Present: normal affect, normal mood
--- NOTE | 2017-05-04 14:05 | Physician Discharge Referral ---
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 For more information, call the [place] Tobacco Quit Line at 5-218-QGZY-NOW. - Services Needed Following services are medically necessary services: Nursing, Physical Therapy, Occupational Therapy - Transfer Medications Prescriptions: Tamsulosin [Flomax] 0.4 mg PO DAILY #30 Home Medications: Aspirin [Lo-Dose Aspirin EC] 81 mg PO BID 03/19/17 [History] Atorvastatin [Lipitor] 40 mg PO HS 03/19/17 [History] Ferrous Sulfate [Iron] 325 mg PO DAILY 03/19/17 [History] Furosemide [Lasix] 20 mg PO DAILY 03/19/17 [History] Multivitamin [Multi-Day Vitamins] 1 tab PO DAILY 03/19/17 [History] [place]-3/Dha/Epa/Fish Oil [[place] 3 500 Softgel] 1 cap PO DAILY 03/19/17 [History] Lidocaine/Prilocaine [Emla] 1 appl TP AD #30 gm 04/13/17 [Rx] Ondansetron HCl [Zofran] 4 mg PO Q6H PRN #40 tablet 04/13/17 [Rx] Prochlorperazine Maleate [Compazine] 10 mg PO Q6HR PRN #40 tablet 04/13/17 [Rx] Ciprofloxacin HCl [Cipro] 500 mg PO BID 05/03/17 [History] Tamsulosin [Flomax] 0.4 mg PO DAILY #30 05/04/17 [Rx] Allergies/Adverse Reactions: Allergies No Known Allergies Allergy (Verified 04/10/17 15:00) Certification: Further, I certify that my clinical findings support that this patient is homebound (i.e. absences from home require considerable and taxing effort and are for medical reasons or caodaism services or infrequently or short duration when for other reasons) because: Homebound Reason: Patient requires assistance of a person or device to safely leave home Attestation: My signature below is to certify that this patient is under my care and that I, or nurse practitioner, or a physician's investigative assistant working with me, has a face-to -face encounter with this patient.
== END 2017-05-04 15:43 | disposition home health service (06) ==
LOC: EMEROO 12:57 → 3BNU 12:57
PROVIDERS: ADMIT Internal Medicine Endocrinology, Diabetes & Metabolism; ATTEND Nurse Practitioner Family

== ENCOUNTER 2017-05-19 14:37 | Inpatient (IN) ==
--- NOTE | 2017-05-19 15:30 | Emergency Department Note ---
Disposition Clinical Impression: Comer catheter problem Qualifiers: Encounter type: subsequent encounter Qualified Code(s): T83.9XXD - Unspecified complication of genitourinary prosthetic device, implant and graft, subsequent encounter Disposition: Admitted As Inpatient Male Urogenital HPI - General Chief complaint: ED General Medical Stated complaint: cath problems, ca patient Time Seen by Provider: 05/19/17 15:29 Source: patient, family Limitations: no limitations Nursing Notes Reviewed: Yes Vital Signs Reviewed: Yes - History of Present Illness HPI Narrative: Patient is a 81-year-old male has an indwelling Cmoer catheter is complaining of obstruction of the catheter and also some mild suprapubic tenderness. The patient was here last night for similar episode he was treated with antibiotics catheter was irrigated and discharged home. He spoke with Dr. Garber today on his way to the ER. Patient some mild suprapubic discomfort goal aching. Denies any fevers chills nausea vomiting. - Related Data Home Medications Medication Instructions Recorded Confirmed Aspirin [Lo-Dose Aspirin EC] 81 mg PO BID 03/19/17 05/19/17 Atorvastatin [Lipitor] 40 mg PO HS 03/19/17 05/19/17 Ferrous Sulfate [Iron] 325 mg PO DAILY 03/19/17 05/03/17 Furosemide [Lasix] 20 mg PO DAILY 03/19/17 05/19/17 Multivitamin [Multi-Day Vitamins] 1 tab PO DAILY 03/19/17 05/19/17 Magic Mouthwash [Magic Mouthwash 5 ml PO Q4H PRN 05/19/17 05/19/17 BLM] Omeprazole [PriLOSEC] 20 mg PO DAILY 05/19/17 05/19/17 metFORMIN [Glucophage] 500 mg PO BIDWM 05/19/17 Previous Rx's Medication Instructions Recorded Lidocaine/Prilocaine [Emla] 1 appl TP AD #30 gm 04/13/17 Ondansetron HCl [Zofran] 4 mg PO Q6H PRN #40 tablet 04/13/17 Prochlorperazine Maleate 10 mg PO Q6HR PRN #40 tablet 04/13/17 [Compazine] Tamsulosin [Flomax] 0.4 mg PO DAILY #30 05/04/17 Tobramycin/Dex Opth DROPS 1 drop BOTH EYES QID PRN #1 bottle 05/05/17 [Tobradex Opth Drops] Gabapentin [Neurontin] 100 mg PO BID #60 capsule 05/07/17 Ciprofloxacin HCl [Cipro] 500 mg PO BID #14 tablet 05/18/17 Allergies Allergy/AdvReac Type Severity Reaction Status Date / Time No Known Allergies Allergy Verified 05/19/17 14:53 All systems ED: reviewed and negative except as stated. Constitutional: Denies: fever, chills Gastrointestinal: Denies: nausea, vomiting Past Medical History - Past Medical History Source: patient, old records reviewed, nursing notes reviewed Medical history: Reports: cancer, hypertension Surgical history: Reports: no surgical history Psychiatric history: Reports: no psych history - Social History Smoking Status: Former smoker Smokeless Tobacco Status: Yes Alcohol use: Reports: rarely Drug use: Reports: none Physical Exam - General Limitations: no limitations General appearance: alert, in no apparent distress - Head Head exam: normal inspection - Eye Eye exam: Present: normal appearance - ENT ENT exam: normal exam, normal oropharynx, mucous membranes moist, normal external ear exam - Neck Neck exam: Present: normal inspection, full ROM, trachea midline - Respiratory Respiratory exam: Present: normal lung sounds bilaterally - Cardiovascular Cardiovascular exam: Present: regular rate, normal rhythm, normal heart sounds - Male exam: Absent: paraphimosis, penile swelling, induration, ulcerations - Neurological Exam Neurological exam: Present: alert, oriented X3, normal gait - Psychiatric Psychiatric exam: Present: normal affect, normal mood - Skin Skin exam: Present: warm, dry, intact, normal color Course - Consultations Consultation #1: dr. dean, slow irrigation admit to medicine will see in am. Time: 18:45 Vital Signs Temperature 97.9 F 05/19/17 14:57 Pulse Rate 100 05/19/17 14:57 Respiratory Rate 18 05/19/17 14:57 Blood Pressure 131/70 05/19/17 14:57 O2 Sat by Pulse Oximetry 99 05/19/17 14:57 Temperature 98.1 F 05/19/17 21:05 Pulse Rate 96 05/19/17 21:05 Respiratory Rate 15 05/19/17 21:05 Blood Pressure 160/61 05/19/17 21:05 O2 Sat by Pulse Oximetry 98 05/19/17 21:05 Oxygen Delivery Oxygen Delivery Room Air Urogenital-Male - MDM Narrative Medical decision making narrative: I spoke with Dr. Dean replaced the catheter we placed a 3-way with continuous irrigation admitted to the hospital service will see the patient in the morning - Lab Data Result diagrams: 05/19/17 19:00 05/19/17 19:00 Lab Results 05/19/17 05/19/17 05/19/17 Range/Units 19:00 19:00 19:00 WBC 60.7 H* (4.3-11.1) K/mcL RBC 3.25 L (4.19-5.50) M/mcL Hgb 9.0 L (12.9-16.9) g/dL Hct 27.4 L (37.5-50.1) % MCV 84.3 (83.0-100.0) fL MCH 27.7 L (28.0-33.3) pg MCHC 32.8 (31.6-35.5) g/dL RDW 16.9 H (11.5-14.5) % Plt Count 189 (140-400) K/mcL MPV 11.1 (9.4-12.4) fL Seg Neutrophils % 92.0 % Band Neutrophils % 3.0 (0-4) % Lymphocytes % 5.0 % Neutrophils # 57.7 H (1.6-8.9) K/mcL Lymphocytes # 3.0 (0.6-4.6) K/mcL Toxic Granulation Present A (Not Present) Platelet Estimate Normal (Normal) Hypochromasia Present A (Not Present) Anisocytosis 1+ A (Not Present) Macrocytosis Present A (Not Present) PT 12.0 (9.4-12.1) Seconds INR 1.1 APTT 28.2 (26.0-36.0) Seconds Sodium 137 (136-145) mEq/L Potassium 3.6 (3.5-4.5) mEq/L Chloride 101 (98-109) mEq/L Carbon Dioxide 31 H (19-29) mEq/L BUN 17 (8-26) mg/dL Creatinine 0.94 (0.72-1.25) mg/dL Est GFR ( Amer) > 60 (> 60) Est GFR (Non-Af Amer) > 60 (> 60) BUN/Creatinine Ratio 18 (6-26) Glucose 118 H (70-99) mg/dL Calculated Osmolality 287 (280-300) Calcium 9.2 (8.6-10.8) mg/dL
[2017-05-19] MEDS ORDERED: Lidocaine Jelly 11 ml Syringe TP ONE (16:42)
[2017-05-19 19:23] LABS: Hematocrit 27.4 % (37.5-50.1); Mean Corpuscular HGB Conc 32.8 g/dL (31.6-35.5); Mean Corpuscular Hemoglobin 27.7 pg (28.0-33.3); Mean Corpuscular Volume 84.3 fL (83.0-100.0); Mean Platelet Volume 11.1 fL (9.4-12.4); Platelet Count 189 K/mcL (140-400); Red Blood Count 3.25 M/mcL (4.19-5.50); Red Cell Distribution Width 16.9 % (11.5-14.5)
[2017-05-19 19:25] LABS: INR 1.1
[2017-05-19 19:28] LABS: Activated Partial Thrombo Time 28.2 Seconds (26.0-36.0)
[2017-05-19 19:32] LABS: BUN/Creatinine Ratio 18 (6-26); Blood Urea Nitrogen 17 mg/dL (8-26); Calcium 9.2 mg/dL (8.6-10.8); Carbon Dioxide 31 mEq/L (19-29); Chloride 101 mEq/L (98-109); Glucose 118 mg/dL (70-99); Osmolality,Calculated 287 (280-300); Potassium 3.6 mEq/L (3.5-4.5); Sodium 137 mEq/L (136-145); eGFR For African Americans > 60 (> 60); eGFR For Non-African Americans > 60 (> 60)
[2017-05-19 19:47] LABS: Neutrophils # 57.7 K/mcL (1.6-8.9); Platelet Estimate Normal (Normal)
[2017-05-19 19:57] LABS: Anisocytosis 1+ (Not Present)
[2017-05-19 19:58] LABS: Hypochromasia Present (Not Present); Macrocytosis Present (Not Present); Toxic Granulation Present (Not Present)
[2017-05-19] MEDS ORDERED: Acetaminophen 325 MG TABLET PO PRN (22:20)
[2017-05-19] MEDS ORDERED: Naloxone 0.4 MG/ML INJ IVP PRN (22:20)
--- NOTE | 2017-05-19 22:20 | Internal Med History&Physical ---
<Oswaldo Buckner - Last Filed: 05/20/17 04:13> Date of Encounter: 05/20/17 Time of Encounter: 22:00 Assessment and Plan (1) UTI (urinary tract infection) Current visit: No Status: Acute Patient can have UTI ER yesterday and was started on ciprofloxacin at that time. He returns to the ER today due to concerns of continued urinary retention , denies having any fever/chills, confusion or weakness. Because of his indwelling Ko catheter he is unable to assess whether there is been any dysuria or polyuria. He does report he has noticed a pink tinge to the Ko output since Thursday. We will continue patient Cipro Continue Ko with continuous bladder irrigation Tylenol as needed for fever Qualifiers: Urinary tract infection type: acute cystitis Hematuria presence: with hematuria Qualified Code(s): N30.01 - Acute cystitis with hematuria (2) Urinary retention Current visit: No Status: Acute Patient reports having periodic loss of function of his urinary catheter leading to urinary retention and uncomfortable sensation in his pelvis. Was originally seen yesterday for similar complaints, found to have UTI and told to follow-up with Dr. Monroy on . He reports that he cannot wait that long for care of his Ko and return to the hospital. We will treat UTI as above Urology consult (3) Hematuria Current visit: Yes Status: Acute Patient hematuria likely result of current prostate cancer, chemotherapy, current UTI and indwelling Ko. Although urine in Ko bag is pink, it is not red and no clots observed. We will continue bladder irrigation Consults urology Treat UTI as above Qualifiers: Hematuria type: gross Qualified Code(s): R31.0 - Gross hematuria (4) Leukocytosis Current visit: No Status: Acute Patient seen to have steadily rising neutrophil dominant white blood cell count the last several days, this reaction is likely result of the Neulasta injection and he was given at the time of his chemotherapy on Thursday in the presence of his current UTI. Patient denies fever/chills, denies weight loss, denies diaphoresis, denies weakness. We will continue to monitor white blood cell count with daily CBC, if evidence of continued rise of WBC will consider consult to hematology We will treat UTI as above Qualifiers: Leukocytosis type: other Qualified Code(s): D72.828 - Other elevated white blood cell count (5) Anemia Current visit: No Status: Chronic Patient has hemoglobin of 9. Patient hemoglobin on 05/15/17 was 11. Patient loss of hemoglobin could be part of his continued chemotherapy as well as seen with large amount of red blood cells in his urine. We will hold chemical prophylaxis for DVT We will continue to monitor her blood cell count with daily CBC Qualifiers: Anemia type: other cause Other causes of anemia: antineoplastic chemotherapy Qualified Code(s): D64.81 - Anemia due to antineoplastic chemotherapy; T45.1X5A - Adverse effect of antineoplastic and immunosuppressive drugs, initial encounter (6) Esophageal cancer Current visit: Yes Status: Acute Currently under the care of Dr. Taylor for his concrement prostate and esophageal cancer. He had his second round of chemotherapy on Thursday with carbotaxol with supplementary Neulasta. He has been receiving Lupron concurrently. Patient leukocytosis likely result of active chemotherapy as well as recent Neulasta injection Qualifiers: Malignant neoplasm of esophagus location: unspecified location Qualified Code(s): C15.9 - Malignant neoplasm of esophagus, unspecified (7) Prostatic cancer Current visit: No Status: Acute Patient prostate cancer likely contributing to his urinary symptoms and need for continuous bladder irrigation. Currently under the care of Dr. Taylor for his concrement prostate and esophageal cancer. He had his second round of chemotherapy on Thursday with carbotaxol with supplementary Neulasta. He has been receiving Lupron concurrently. He has been seeing Dr. Monroy for management. Continue patient continues bladder irrigation Dr. Monroy consulted (8) Hypertension Current visit: Yes Status: Acute Hypertension documented of 160s/70s. Since come down to 135/62. We will continue to monitor patient's blood pressure with regular vital checks Consider addition of oral antihypertensive if continued hypertension seen Qualifiers: Hypertension type: unspecified Qualified Code(s): I10 - Essential (primary ) hypertension (9) DVT prophylaxis Current visit: No Status: Acute Evidence of hematuria with pink coloration of catheter output as well as a large amount of blood seen on UA risk concerns for chemical DVT prophylaxis. Intermittent pneumatic compression devices Internal Medicine - H&P: HPI Chief complaint: UTI and bladder catheter not working Admitted From: Home Plans for Post Hospital Care: Home History of present illness: Mr. Tyler is a 81 year old male with medical history of esophageal cancer, prostate cancer, and in-dwelling ko for bladder irragation who presents to [facility] due to concerns with his catheter not functioning properly. He was having issues with the catheter not draining at times, causing him discomfort. He had been seen at the hospital yesterday because of the same concerns and was found to have a UTI. He was given an antibiotic and was going to following up with his urologist in about a week. After going home, his symptoms did not improve and he was having too much discomfort to wait for the appointment next week and came back to the hospital. He has had the catheter in place since the beginning of the month after being diagnosed with esophageal and prostate cancer. During this time he has started chemotherapy and was just given his 2nd round of chemotherapy on Thursday. Following his episode of chemotherapy with carbotaxol, he was given a dose of neulasta as well to help increase his neutrophil count. Patient reports that since Thursday he has noticed a pink coloration to his urine output that was not present before. He does not have a discomfort in his pelvis lower abdomen except for when he has episodes of urinary retention. He denies fever or chills, denies weakness or confusion, denies lightheadedness or dizziness, he does report headache. He has not had any chest pain or shortness of breath, nausea or vomiting, diarrhea or constipation. Past Med Surg Social Fam HX - Past Medical History Medical history: cancer, hypertension Psychiatric history: no psych history - Past Surgical History Surgical History: no surgical history - Social History Smoking Status: Former smoker Smokeless Tobacco Status: Yes Alcohol use: rarely Drug use: none Internal Medicine - H&P: Meds Aspirin [Lo-Dose Aspirin EC] 81 mg PO BID 03/19/17 [History] Atorvastatin [Lipitor] 40 mg PO HS 03/19/17 [History] Ferrous Sulfate [Iron] 325 mg PO DAILY 03/19/17 [History] Furosemide [Lasix] 20 mg PO DAILY 03/19/17 [History] Multivitamin [Multi-Day Vitamins] 1 tab PO DAILY 03/19/17 [History] Lidocaine/Prilocaine [Emla] 1 appl TP AD #30 gm 04/13/17 [Rx] Ondansetron HCl [Zofran] 4 mg PO Q6H PRN #40 tablet 04/13/17 [Rx] Prochlorperazine Maleate [Compazine] 10 mg PO Q6HR PRN #40 tablet 04/13/17 [Rx] Tamsulosin [Flomax] 0.4 mg PO DAILY #30 05/04/17 [Rx] Tobramycin/Dex Opth DROPS [Tobradex Opth Drops] 1 drop BOTH EYES QID PRN #1 bottle 05/05/17 [Rx] Gabapentin [Neurontin] 100 mg PO BID #60 capsule 05/07/17 [Rx] Ciprofloxacin HCl [Cipro] 500 mg PO BID #14 tablet 05/18/17 [Rx] Magic Mouthwash [Magic Mouthwash BLM] 5 ml PO Q4H PRN 05/19/17 [History] Omeprazole [PriLOSEC] 20 mg PO DAILY 05/19/17 [History] metFORMIN [Glucophage] 500 mg PO BIDWM 05/19/17 [History] 3 Allergy/AdvReac Type Severity Reaction Status Date / Time No Known Allergies Allergy Verified 05/19/17 14:53 Review of systems: Gen: Denies fever, denies chills, denies weight loss, denies weakness, denies fatigue CV: Denies chest pain, denies palpitations Resp: Denies shortness of breath GI: Denies nausea, denies vomiting, denies abdominal pain, denies constipation, denies diarrhea, denies hematochezia, denies melena Neuro: Reports headache, denies confusion, denies focal weakness, denies vision changes Skin: Denies bruising, denies rash : Denies flank pain, denies dysuria, reports hematuria - Constitutional Vitals: Temp Pulse Resp BP Pulse Ox 98.1 F 96 15 160/61 98 05/19/17 21:05 05/19/17 21:05 05/19/17 21:05 05/19/17 21:05 05/19/17 21:05 Exam: General: Cooperative, pleasant, no acute distress, alert and oriented 3, answers questions appropriately HEENT: Normocephalic, atraumatic, neck supple, trachea midline, Conjunctiva pink , sclera anicteric, oral mucosa moist, no orophargeal erythema or exudates Respiratory: No accessory muscle usage, clear to auscultation bilaterally, no wheezes/rhonchi/rales appreciated Cardiovascular: Regular rate and rhythm, S1 and S2 present, no murmurs/rubs/ gallops/clicks appreciated GI/abdominal: Nondistended, nontender, soft, normal bowel sounds, no peritoneal signs, catheter in place Extremities: No calf tenderness, no pedal edema appreciated, warm, lower extremity pulses palpable and symmetrical Neurological: Alert and oriented 3, no facial droop, no focal deficits Skin: Dry, intact, normal color Internal Med - H&P Results - Labs CBC & Chem 7: 05/19/17 19:00 05/20/17 03:45 <Gem Mandel W - Last Filed: 05/20/17 05:02> Date of Encounter: 05/20/17 Internal Medicine - H&P: HPI History of present illness: Mr. Tyler is a 81 year old male All Systems PM: A 10-system review of systems was performed and is negative for pertinent findings except as documented above in the HPI. - Constitutional Vitals: Temp Pulse Resp BP Pulse Ox 98.0 F 88 15 135/62 98 05/19/17 23:50 05/19/17 23:50 05/19/17 23:50 05/19/17 23:50 05/19/17 23:50 Internal Med - H&P Results - Labs CBC & Chem 7: 05/20/17 03:45 05/20/17 03:45 Labs: Short CBC 05/20/17 Range/Units 03:45 WBC 55.9 H* (4.3-11.1) K/mcL Hgb 8.4 L (12.9-16.9) g/dL Hct 24.7 L (37.5-50.1) % Plt Count 181 (140-400) K/mcL Neutrophils # 52.0 H (1.6-8.9) K/mcL BMP 05/20/17 03:45 Sodium 139 Potassium 3.7 Chloride 102 Carbon Dioxide 30 H BUN 19 Creatinine 0.90 Glucose 119 H Calcium 9.0 - Attending Attestation Seen/examined/supervised decision making. 81M with prostate/esophageal cancer on chemotherapy is admitted with intermittent indwelling Ko flow obstruction causing suprapubic discomfort and hematuria. Leukocytosis is due to Neulasta and unlikely to be due to sepsis. Continue empiric ciprofloxacin, duration TBD based on clinical course as UA sample from Ko is likely to be contaminated. Urology consult.
[2017-05-19] MEDS ORDERED: Magic Mouthwash 10 ML UD Cup PO PRN (22:25)
[2017-05-19] MEDS ORDERED: Tobramycin/Dex Opth DROPS 2.5 ML BOTTLE BOTH EYES PRN (22:25)
[2017-05-20 04:05] LABS: Hemoglobin 8.4 g/dL (12.9-16.9)
[2017-05-20 04:06] LABS: Hematocrit 24.7 % (37.5-50.1); Mean Corpuscular Hemoglobin 28.5 pg (28.0-33.3); Mean Corpuscular Volume 83.7 fL (83.0-100.0); Mean Platelet Volume 10.9 fL (9.4-12.4); Platelet Count 181 K/mcL (140-400); Red Blood Count 2.95 M/mcL (4.19-5.50)
[2017-05-20 04:07] LABS: BUN/Creatinine Ratio 21 (6-26); Blood Urea Nitrogen 19 mg/dL (8-26); Carbon Dioxide 30 mEq/L (19-29); Chloride 102 mEq/L (98-109); Glucose 119 mg/dL (70-99); Magnesium 1.3 mg/dL (1.6-2.6); Osmolality,Calculated 291 (280-300); Phosphorous 3.4 mg/dL (2.3-4.7); Potassium 3.7 mEq/L (3.5-4.5); Sodium 139 mEq/L (136-145); eGFR For African Americans > 60 (> 60); eGFR For Non-African Americans > 60 (> 60)
[2017-05-20 04:24] LABS: Lymphocytes # 1.7 K/mcL (0.6-4.6); Monocytes # 1.1 K/mcL (0.0-1.3); Platelet Estimate Normal (Normal); Toxic Granulation Present (Not Present)
[2017-05-20 04:25] LABS: Anisocytosis 1+ (Not Present); Hypochromasia Present (Not Present); Macrocytosis Present (Not Present)
[2017-05-20 04:27] LABS: Microcytosis Present (Not Present); Poikilocytosis 1+ (Not Present)
[2017-05-20 04:28] LABS: Hypersegmented Neutrophils Present (Not Present)
--- NOTE | 2017-05-20 08:48 | Urology - Consult Note ---
Date of Encounter: 05/20/17 Time of Encounter: 08:45 - Assessment and Plan (1) Hematuria Current Visit: Yes Status: Acute Assessment and plan: Will need to keep catheter in place. Okay to discharge per urology with follow- up next Thursday for possible voiding trial. Qualifiers: Hematuria type: gross Qualified Code(s): R31.0 - Gross hematuria (2) Prostatic cancer Current Visit: No Status: Acute Assessment and plan: Most recent PSA of 34 which was done 6 days ago. This is dramatically decreased compared to pre-Lupron shot. Urology CN:HPI Consult date: 05/20/17 Reason for consult Urology: Gross Hematuria Requesting physician: Gem Mandel History of present illness: Teri is a 81 y/o male well known to me for likely prostate cancer with elevated psa. Patient is status post Lupron shot approximately 1 month ago. Patient has indwelling catheter secondary to urinary retention. Patient has failed one voiding trial approximately one and a half weeks ago. Patient now readmitted to the hospital secondary to urinary clot retention. Patient had three-way catheter placed in the emergency department yesterday which required three-way irrigation. Patient states his urine this morning has cleared without any discomfort. CT scan was done yesterday which did not reveal any obvious clots within the bladder but did confirm his massively enlarged prostatomegaly Past Med Surg Social Fam HX - Past Medical History Medical history: cancer, hypertension Psychiatric history: no psych history - Past Surgical History Surgical History: no surgical history - Social History Smoking Status: Former smoker Smokeless Tobacco Status: Yes Alcohol use: rarely Drug use: none Medications and Allergies Aspirin [Lo-Dose Aspirin EC] 81 mg PO BID 03/19/17 [History] Atorvastatin [Lipitor] 40 mg PO HS 03/19/17 [History] Ferrous Sulfate [Iron] 325 mg PO DAILY 03/19/17 [History] Furosemide [Lasix] 20 mg PO DAILY 03/19/17 [History] Multivitamin [Multi-Day Vitamins] 1 tab PO DAILY 03/19/17 [History] Lidocaine/Prilocaine [Emla] 1 appl TP AD #30 gm 04/13/17 [Rx] Ondansetron HCl [Zofran] 4 mg PO Q6H PRN #40 tablet 04/13/17 [Rx] Prochlorperazine Maleate [Compazine] 10 mg PO Q6HR PRN #40 tablet 04/13/17 [Rx] Tamsulosin [Flomax] 0.4 mg PO DAILY #30 05/04/17 [Rx] Tobramycin/Dex Opth DROPS [Tobradex Opth Drops] 1 drop BOTH EYES QID PRN #1 bottle 05/05/17 [Rx] Gabapentin [Neurontin] 100 mg PO BID #60 capsule 05/07/17 [Rx] Ciprofloxacin HCl [Cipro] 500 mg PO BID #14 tablet 05/18/17 [Rx] Magic Mouthwash [Magic Mouthwash BLM] 5 ml PO Q4H PRN 05/19/17 [History] Omeprazole [PriLOSEC] 20 mg PO DAILY 05/19/17 [History] metFORMIN [Glucophage] 500 mg PO BIDWM 05/19/17 [History] 3 Allergy/AdvReac Type Severity Reaction Status Date / Time No Known Allergies Allergy Verified 05/19/17 14:53 Review of Systems - Constitutional no chills - Cardiovascular no chest pain - Respiratory no cough - Gastrointestinal no abdominal pain - Genitourinary as per HPI - Musculoskeletal no back pain - Integumentary no erythema - Neurological no confusion Exam Initial Vital Signs Temp Pulse Resp BP Pulse Ox 97.9 F 100 18 131/70 99 05/19/17 14:57 05/19/17 14:57 05/19/17 14:57 05/19/17 14:57 05/19/17 14:57 - General physical appearance Present: well developed - Eyes Present: PERRL - ENT Present: normal nares - Neck Present: no masses - Respiratory Present: normal respiratory effort - Cardiovascular Cardiovascular exam IM: RRR - Abdomen Abdomen: Present: soft - Genitourinary other (Urine clear in catheter tubing off irrigation) Urology Results - Labs 05/20/17 03:45 05/20/17 03:45 Abnormal lab results WBC 55.9 K/mcL (4.3-11.1) H* 05/20/17 03:45 RBC 2.95 M/mcL (4.19-5.50) L 05/20/17 03:45 Hgb 8.4 g/dL (12.9-16.9) L 05/20/17 03:45 Hct 24.7 % (37.5-50.1) L 05/20/17 03:45 RDW 17.0 % (11.5-14.5) H 05/20/17 03:45 Band Neutrophils % 6.0 % (0-4) H 05/20/17 03:45 Metamyelocytes % 2.0 % (0) H 05/20/17 03:45 Neutrophils # 52.0 K/mcL (1.6-8.9) H 05/20/17 03:45 Hypersegmented Neuts Present (Not Present) A 05/20/17 03:45 Toxic Granulation Present (Not Present) A 05/20/17 03:45 Hypochromasia Present (Not Present) A 05/20/17 03:45 Poikilocytosis 1+ (Not Present) A 05/20/17 03:45 Anisocytosis 1+ (Not Present) A 05/20/17 03:45 Microcytosis Present (Not Present) A 05/20/17 03:45 Macrocytosis Present (Not Present) A 05/20/17 03:45 Carbon Dioxide 30 mEq/L (19-29) H 05/20/17 03:45 Glucose 119 mg/dL (70-99) H 05/20/17 03:45 Magnesium 1.3 mg/dL (1.6-2.6) L 05/20/17 03:45 All other labs normal. - Imaging CT scan - abdomen: image reviewed CT scan - pelvis: image reviewed Consult Discharge Plan - Plan Referrals: Bethany Morocho MD [Primary Care Provider] -
[2017-05-20] MEDS ORDERED: Multivit/Ca/Min/Fe/FA 1 TAB TABLET PO SCH (09:00)
[2017-05-20] MEDS ORDERED: Furosemide 20 MG TABLET PO SCH (09:00)
[2017-05-20] MEDS ORDERED: Gabapentin 100 MG CAPSULE PO SCH (09:00)
[2017-05-20] MEDS ORDERED: Levofloxacin 750 MG/150 ML 750 MG/150 ML BAG IVPB SCH (09:00)
[2017-05-20] MEDS ORDERED: Magnesium Sulfate 2 GM in D5% in Water 100 ML IVPB ONE (10:55)
--- NOTE | 2017-05-20 11:00 | Oncology Inp Consult Note ---
Date of Encounter: 05/20/17 Time of Encounter: 10:44 Assessment and Plan (1) Leukocytosis Status: Acute Assessment and plan: - Leucocytosis worsened up to 60K yesterday, values trending down to 55K today. 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 This is based on the presence of predominantly neutrophilia, along with the blood smear revealing a few myelocytes, metamyelocytes and bands , but not promyelocytes or blasts. Other white blood cells revealed normal stage of maturation. He received 6 mg of neulasta on 05/18/18. As per previous documentation, primary oncologist was considering to reduce the dose if patient experienced significant leucocytosis. - At this time I would recommend to monitor CBC daily until his counts are clearly trending down. He will have lab tests prior to cycle #3 of carbo/taxol ( currently on day 6 of cycle 2). Qualifiers: Leukocytosis type: other Qualified Code(s): D72.828 - Other elevated white blood cell count (2) Urinary obstruction Status: Acute Assessment and plan: I appreciate urology input. Prior complaints of pelvic pain have resolved and his ko is functional. Continue management of UTI as per primary team. Currently on cipro, day 3. (3) Esophageal cancer Status: Acute Assessment and plan: - I personally reviewed his CT abdomen/pelvis from 05/19/17. It was done with IV contrast, but not PO contrast was administered. I discussed the results of his CT with patient and family at the bedside:his CT shows thickening in the mid esophagus, but not findings suggestive of disease progression. I explained them that a repeated CT scan will be required after completion of cycle 2 ( currently on day 6 of cycle 2 of carbo/taxol and trastuzumab added in cycle 2) to assess for disease response. He should be scheduled for an outpatient follow up with primary oncologist prior to cycle 3. Qualifiers: Malignant neoplasm of esophagus location: unspecified location Qualified Code(s): C15.9 - Malignant neoplasm of esophagus, unspecified (4) Prostatic cancer Status: Acute Assessment and plan: - Diagnosed based on clinical presentation and elevated PSA. No biopsy performed in view of concomitant metastatic esophageal cancer. - PSA shows significant response after lupron was started. - There are not clinical findings ( e.g bone pain) suggestive of disease progression). (5) Diabetes mellitus Status: Chronic Assessment and plan: - serum glocosa values within acceptable range. management as per primary team. Qualifiers: Diabetes mellitus type: type 2 Diabetes mellitus complication detail: with chronic kidney disease Diabetes mellitus intermediate teacher insulin use: without intermediate teacher use Chronic kidney disease stage: stage 3 (moderate) Qualified Code(s) : E11.22 - Type 2 diabetes mellitus with diabetic chronic kidney disease; N18.3 - Chronic kidney disease, stage 3 (moderate) (6) Hypertension Status: Acute Assessment and plan: - Blood pressure values overall at goal. Continue management as per primary team. Qualifiers: Hypertension type: unspecified Qualified Code(s): I10 - Essential (primary ) hypertension - Data of Consult Requesting Physician: Wolfgang Tyler DO Primary Care Provider: Bethany [facility] - Consult Narrative Reason for consult: worsening leucocytosis History of present illness: Chief complaint: leucocytosis, urinary obstruction. Mr. Tyler is a 81 year old male with history of metastatic esophageal cancer currently being treated with palliative chemotherapy, prostate cancer ( diagnosed based on elevated PSA of 96, but not pathologic confirmation in view of concommitant stage IV esophageal cancer, being treated with lupron), history of HTN, DM, BPH, hyperlipidema, CKD, presenting to the ED due to recurrence urinary obstruction, while ko catheter was in place. hematologic consult requested due to leucocytosis. His records show a WBC count of 12.6 K on January 16, 2017. He was started on Carbo/taxol for the management of his metastatic esophageal cancer on April. His WBC count on April 24, 2017 were 13K. He received neulasta following cycle #1 and his counts increased to 31K on May 05, then decreased gradually down to17K by May 15, 2017. He received cycle #2 of carbo/taxol on 05/15, followed by neulasta . His counts increased up to 43K on 05/18, peak up to 60K on May 19 and slight trend down to 55K today. His differential shows predominantly neutrophilia. Platelets remain within normal parameters. Interestingly, he reports not back pain or other bone pain. He reports not associated fever, night sweats, mental status changes, hematochezia, melena. Regarding his prostate cancer. he is being followed closely by urologist. A ko catheter is in place due to obstructive uropathy. His diagnosis was based on clinical findings, including elevated PSA of 96. It was decided to avoid a biopsy in view of his concommitant esophageal cancer. His PSA values have dropped after lupron was started from 96 to 34. He was seen on 05/18 in the ED and started empirically on ciprofloxaxin due to suspected UTI. At that time he was complaining of pelvic pain, but at this time reports that the pelvic pain has resolved. He was noted to present hematuria, but not associated clots. Ko patent at the time of the visit. At the the time of the visit he reports that is tolerating Po diet well. he feels that his appetite is conserved. Summary of prior records: - I reviewed prior records, including documented clinical events, imaging and pathologic findings that led to the diagnosis of metastatic esophageal cancer, as well as clinical events that led to the diagnosis of prostate cancer. In summary, patient was started on palliative chemotherapy with carbo/taxol, receiving cycle #2 on 05/15, herceptin was added on 05/15 due to her2 positivity. - Prior labs reviewed in detail, including the timing of neulasta administration and relationship with worsening leucocytosis. last neulasta administered on 05/18/17. Past Med Surg Social Fam HX - Past Medical History Medical history: cancer, hypertension Psychiatric history: no psych history - Past Surgical History Surgical History: no surgical history - Social History Smoking Status: Former smoker Smokeless Tobacco Status: Yes Alcohol use: rarely Drug use: none - Additional Family History Additional family history: both parents are . daughter from breast cancer. Family history revelant for HTN, thyroid disease, hyperlipidemia Medications and Allergies Aspirin [Lo-Dose Aspirin EC] 81 mg PO BID 03/19/17 [History] Atorvastatin [Lipitor] 40 mg PO HS 03/19/17 [History] Ferrous Sulfate [Iron] 325 mg PO DAILY 03/19/17 [History] Furosemide [Lasix] 20 mg PO DAILY 03/19/17 [History] Multivitamin [Multi-Day Vitamins] 1 tab PO DAILY 03/19/17 [History] Lidocaine/Prilocaine [Emla] 1 appl TP AD #30 gm 04/13/17 [Rx] Ondansetron HCl [Zofran] 4 mg PO Q6H PRN #40 tablet 04/13/17 [Rx] Prochlorperazine Maleate [Compazine] 10 mg PO Q6HR PRN #40 tablet 04/13/17 [Rx] Tamsulosin [Flomax] 0.4 mg PO DAILY #30 05/04/17 [Rx] Tobramycin/Dex Opth DROPS [Tobradex Opth Drops] 1 drop BOTH EYES QID PRN #1 bottle 05/05/17 [Rx] Gabapentin [Neurontin] 100 mg PO BID #60 capsule 05/07/17 [Rx] Ciprofloxacin HCl [Cipro] 500 mg PO BID #14 tablet 05/18/17 [Rx] Magic Mouthwash [Magic Mouthwash BLM] 5 ml PO Q4H PRN 05/19/17 [History] Omeprazole [PriLOSEC] 20 mg PO DAILY 05/19/17 [History] metFORMIN [Glucophage] 500 mg PO BIDWM 05/19/17 [History] 3 Allergy/AdvReac Type Severity Reaction Status Date / Time No Known Allergies Allergy Verified 05/19/17 14:53 Constitutional: Absent: excessive sweating, fever(s), headache(s), night sweats Cardiovascular: Absent: chest pain, dyspnea on exertion Respiratory: Absent: dyspnea, hemoptysis Gastrointestinal: Absent: abdominal pain, diarrhea, early satiety, fecal incontinence, hematemesis, hematochezia, melena, odynophagia Genitourinary: difficulty urinating, hematuria Musculoskeletal: Present: numbness. Absent: back pain Integumentary: Absent: change in pigmentation, pruritus, rash Neurological: Absent: abnormal speech, behavioral changes, confusion, lack of coordination Psychiatric: Absent: anxiety, behavioral changes, confusion, visual hallucinations Endocrine: Absent: excessive sweating Hematologic/Lymphatic: Present: other (hematuria) Oncology - Exam - Constitutional Vitals: Temp Pulse Resp BP Pulse Ox 98.9 F 98 12 150/63 95 05/20/17 07:44 05/20/17 07:44 05/20/17 07:44 05/20/17 07:44 05/20/17 07:44 - Head Head exam: Present: normal inspection - Eye Eye exam: Present: EOMI - ENT ENT exam: Present: normal exam - Neck Neck exam: Present: normal inspection - Respiratory Respiratory exam: Present: CTAB - Cardiovascular Cardiovascular exam: Present: RRR - GI/Abdominal GI/Abdominal exam: Present: normal bowel sounds. Absent: diminished bowel sounds, organomegaly, pulsatile mass, tenderness - Expanded GI/Abdominal Exam GI/Abdominal exam: Absent: Elena's sign - Additional comments: ko catheter in place - Extremities Exam Extremities exam: Present: normal inspection. Absent: calf tenderness, joint swelling, tenderness - Back Exam Back exam: Absent: tenderness - Neurological Exam Neurological exam: Present: alert, CN II-XII intact, oriented X3. Absent: no focal deficits - Psychiatric Psychiatric exam: Present: normal affect, normal mood. Absent: agitated, depressed - Skin Skin exam: Present: normal color. Absent: petechiae Oncology - Results Blood smear : I reviewed blood smear and I noticed the presence of a few number of bands, and metamyelocytes. There were not promyelocytes or blasts. Other white blood cells revealed normal stage of maturation. Normal number of platelets. There were not fragmented red blood cells. Consult Discharge Plan - Plan Referrals: Jordan Monroy MD [Partnered Physician] - 05/26/17 8:30 am Bethany Morocho MD [Primary Care Provider] - 06/05/17 9:15 am
[2017-05-20 11:04] VITALS: BP 142/62
[2017-05-20] MEDS ORDERED: Magnesium Sulfate 1 GM in D5% in Water 100 ML IVPB ONE (15:00)
--- NOTE | 2017-05-20 16:17 | Discharge Summary ---
Date of Encounter: 05/20/17 Time of Encounter: 11:00 - Discharge Diagnosis (1) Urinary retention Priority: Primary Status: Acute Comments: Continue Ko catheter - Voiding trial in 1 week Urology consult - indications reviewed, appreciate input Follow-up with urology as outpatient in 1 week (2) Leukocytosis Priority: Primary Status: Acute Comments: Leukocytosis secondary to Neulasta - predominant neutrophilia Oncology consult - conditions reviewed, appreciated input - discussed with oncologist, states patient is stable for discharge Patient can follow up with primary oncologist as outpatient CBC to be repeated to monitor counts Qualifiers: Leukocytosis type: other Qualified Code(s): D72.828 - Other elevated white blood cell count (3) Esophageal cancer Priority: Primary Status: Acute Comments: Currently on chemotherapy - scheduled follow-up with primary oncologist Qualifiers: Malignant neoplasm of esophagus location: unspecified location Qualified Code(s): C15.9 - Malignant neoplasm of esophagus, unspecified (4) Urinary tract infection Priority: Primary Status: Acute Comments: Patient currently on ciprofloxacin - this will need to be continued on discharge Qualifiers: Urinary tract infection type: acute cystitis Hematuria presence: without hematuria Qualified Code(s): N30.00 - Acute cystitis without hematuria (5) Hematuria Priority: Primary Status: Acute Comments: Likely secondary to prostate cancer, chemotherapy and current UTI with indwelling Ko catheter - no blood clots seen Continue Ko catheter, follow up with urology as outpatient Qualifiers: Hematuria type: gross Qualified Code(s): R31.0 - Gross hematuria (6) Prostatic cancer Priority: Primary Status: Acute Comments: Diagnosed based on clinical presentation and elevated PSA - no biopsy performed PSA show significant response after Lupron Follow-up with urology as outpatient - Discharge Medications Prescriptions: Ciprofloxacin HCl [Cipro] 500 mg PO BID #14 tablet Magnesium Oxide [Magnesium] 400 mg PO BID #30 capsule Home Medications: Aspirin [Lo-Dose Aspirin EC] 81 mg PO BID 03/19/17 [History] Atorvastatin [Lipitor] 40 mg PO HS 03/19/17 [History] Ferrous Sulfate [Iron] 325 mg PO DAILY 03/19/17 [History] Furosemide [Lasix] 20 mg PO DAILY 03/19/17 [History] Multivitamin [Multi-Day Vitamins] 1 tab PO DAILY 03/19/17 [History] Lidocaine/Prilocaine [Emla] 1 appl TP AD #30 gm 07/24/17 [Rx] Ondansetron HCl [Zofran] 4 mg PO Q6H PRN #40 tablet 04/13/17 [Rx] Prochlorperazine Maleate [Compazine] 10 mg PO Q6HR PRN #40 tablet 04/13/17 [Rx] Tamsulosin [Flomax] 0.4 mg PO DAILY #30 05/04/17 [Rx] Tobramycin/Dex Opth DROPS [Tobradex Opth Drops] 1 drop BOTH EYES QID PRN #1 bottle 05/05/17 [Rx] Gabapentin [Neurontin] 100 mg PO BID #60 capsule 05/07/17 [Rx] Magic Mouthwash [Magic Mouthwash BLM] 5 ml PO Q4H PRN 05/19/17 [History] Omeprazole [PriLOSEC] 20 mg PO DAILY 05/19/17 [History] metFORMIN [Glucophage] 500 mg PO BIDWM 05/19/17 [History] Ciprofloxacin HCl [Cipro] 500 mg PO BID #14 tablet 05/20/17 [Rx] Magnesium Oxide [Magnesium] 400 mg PO BID #30 capsule 05/20/17 [Rx] Allergies/Adverse Reactions: 3 Allergy/AdvReac Type Severity Reaction Status Date / Time No Known Allergies Allergy Verified 05/19/17 14:53 Date of admission: 05/20/17 05:03 Primary care physician: Bethany Galicia Consults: 05/20/17 07:27 Consult to Oncology [CONS] Routine Consulting Provider: [facility] Reason for Consult: s/p chemotherapy Call Completed: No Anticipated date of discharge: 05/20/17 - Patient Status Disposition: Home, Self-Care Condition: Good Functional capacity at discharge: uses cane/walker Overall status at discharge: patient is back to baseline - Discharge Instructions Instructions: Ciprofloxacin (By mouth) Follow Up With: Jordan Monroy MD [Partnered Physician] - 05/26/17 8:30 am Bethany Morocho MD [Primary Care Provider] - 06/05/17 9:15 am Leo Noriega MD [Partnered Physician] - - Diet and Activity Activity: increase activity as tolerated Diet: advance to your usual diet Hospital course: Mr. Tyler is a 81 year old male with past medical history of esophageal cancer , prostate cancer, in-dwelling ko for bladder irragation. He presented to [facility] due to concerns with his catheter not functioning properly. He was having issues with the catheter not draining at times, causing him discomfort. He had been seen at the hospital yesterday because of the same concerns and was found to have a UTI. He was given an antibiotic and was going to following up with his urologist in about a week. After going home, his symptoms did not improve and he was having too much discomfort to wait for the appointment next week and came back to the hospital. Catheter has been in place since the beginning of the month after being diagnosed with esophageal and prostate cancer. During this time he has started chemotherapy and was just given his 2nd round of chemotherapy on Thursday. Following his episode of chemotherapy with carbotaxol, he was given a dose of neulasta as well to help increase his neutrophil count. Patient reports that since Thursday he has noticed a pink coloration to his urine output that was not present before. He does not have a discomfort in his pelvis lower abdomen except for when he has episodes of urinary retention. He denied fever or chills, denies weakness or confusion, denies lightheadedness or dizziness. He has not had any chest pain or shortness of breath, nausea or vomiting, diarrhea or constipation. Admitted for UTI and hematuria and urinary retention. Ko catheter was continued and bladder was irrigated. Urology has evaluated the patient, and advised to keep the catheter in place and to follow-up as outpatient. Stable for discharge from urology standpoint. Oncology has also evaluated patient. Patient does have leukocytosis with white count at 55.9. This is likely due to the Neulasta. He does have predominant neutrophilia. He is scheduled to follow -up with his primary oncologist tomorrow. He will require repeat CBC to monitor counts. He is also stable for discharge from oncology standpoint. Patient and family members have been explained about his condition and plan of care in detail. He understood and agreed. No unanswered questions. Patient states he feels better and wants to go home today. He says he is scheduled for follow-up with his primary oncologist tomorrow and will also see his urologist next week. No other acute events or complications during his stay in the hospital. Patient is being discharged in a stable condition. - Time Spent with Patient Total time spent providing and/or coordinating discharge services: Less than 30 minutes - Constitutional Vitals: Temp Pulse Resp BP Pulse Ox 98.5 F 96 20 142/62 96 05/20/17 14:54 05/20/17 14:54 05/20/17 14:54 05/20/17 14:54 05/20/17 14:54 General appearance: Present: A&O X 3, pleasant, no acute distress, answers questions appropriately - Head Head exam: Present: atraumatic - Eye Eye exam: Present: EOMI - ENT ENT exam: Present: mucous membranes moist - Respiratory Respiratory exam: Present: CTAB. Absent: rales, rhonchi, wheezes, tachypnea - Cardiovascular Cardiovascular exam: Present: RRR, +S1, +S2 - GI/Abdominal GI/Abdominal exam: Present: soft. Absent: distended, firm, guarding, tenderness - Extremities Exam Extremities exam: Present: radial pulses palpable and symmetrical. Absent: cyanotic, pedal edema - Neurological Exam Neurological exam: Present: alert, oriented X3, no focal deficits. Absent: facial droop, speech deficit
== END 2017-05-20 16:55 | disposition home or self-care (01) | DRG 690 ==
LOC: EMEROO 14:37 → 3ANU 14:37
PROVIDERS: ADMIT Internal Medicine; ATTEND Internal Medicine